=== PATIENT | male | born 1990 | race Caucasian/White ===

== ENCOUNTER 2017-06-07 07:20 | Inpatient (IN) | payer MEDICARE ==
[~2017-06-07] VITALS: Ht 190.5 cm; Wt 77.1 kg
[2017-06-07 07:45] VITALS: BP 143/91
[2017-06-07] MEDS ORDERED: Morphine Sulfate 4mg/ml Inj IVP ONE ×2 (08:45→11:00)
[2017-06-07 08:46] LABS: ANION GAP 11 mmol/L (5-15); CALCIUM 7.7 MG/DL (8.5-10.1); CARBON DIOXIDE 26 MMOL/L (21-32); CHLORIDE 100 MMOL/L (98-107); GLOMERULAR FILTRATION RATE > 60 mL/min (>60); SODIUM 137 MMOL/L (136-145)
[2017-06-07 08:49] LABS: BASOPHILS % (AUTO) 1.5 % (0.0-2.0); EOSINOPHILS % (AUTO) 3.2 % (0.0-3.0); MEAN CORPUSCULAR HEMOGLOBIN 30.5 PG (27.0-31.0); MEAN CORPUSCULAR HGB CONC 33.8 G/DL (32.0-36.0); MEAN CORPUSCULAR VOLUME 90 FL (80-99); MEAN PLATELET VOLUME 5.7 FL (6.5-10.1); MONOCYTES % (AUTO) 5.1 % (1.0-10.0); NEUTROPHILS % (AUTO) 66.3 % (45.0-75.0); PLATELET COUNT 337 K/UL (150-450); RED BLOOD COUNT 4.83 M/UL (4.70-6.10); RED CELL DISTRIBUTION WIDTH 11.9 % (11.6-14.8); WHITE BLOOD COUNT 5.6 K/UL (4.8-10.8)
[2017-06-07 08:50] LABS: ALANINE AMINOTRANSFERASE 24 U/L (12-78); ALBUMIN/GLOBULIN RATIO 0.7 (1.0-2.7); ASPARTATE AMINO TRANSFERASE 23 U/L (15-37); LIPASE 92 U/L (73-393); TOTAL PROTEIN 8.6 G/DL (6.4-8.2)
[2017-06-07 09:11] LABS: REFLEX LACTIC ACID YES OR NO YES
--- NOTE | 2017-06-07 09:18 | Emergency Room Report ---
History of Present Illness General Chief Complaint: Abdominal Pain Source: Patient Present Illness HPI 26-year-old male, history of Crohn's disease, also history of bowel perforation with resection of transverse colon 2012, ileostomy, last surgery performed 2013 p/w abdominal pain one day. Patient states pain started this morning, generalized, non radiating, sharp in nature, intermittent. No relieving or exacerbating factors. Also with nausea but no vomiting, also with very watery loose stool in the ileostomy Denies fever, chills. 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 here Allergies: Coded Allergies: No Known Allergies (Unverified , 06/07/17) Patient History Past Medical History: see triage record Past Surgical History: none Pertinent Family History: none Reviewed Nursing Documentation: PMH: Agreed, PSxH: Agreed Nursing Documentation-PMH Past Medical History: No History, Except For Hx Gastrointestinal Problems: Yes - chrons dz, illeostomy Review of Systems All Other Systems: negative except mentioned in HPI Physical Exam Vital Signs Date Time Temp Pulse Resp B/P (MAP) Pulse Ox O2 Delivery O2 Flow Rate FiO2 06/07/17 07:25 98.1 101 20 162/85 96 Room Air Sp02 EP Interpretation: reviewed, normal General Appearance: alert, GCS 15, non-toxic, mild distress Head: normocephalic, atraumatic Eyes: bilateral eye normal inspection, bilateral eye PERRL, bilateral eye EOMI ENT: normal ENT inspection, normal pharynx, normal voice, moist mucus membranes Neck: normal inspection, full range of motion, supple Respiratory: normal inspection, lungs clear, normal breath sounds, no respiratory distress, no retraction, no wheezing, speaking full sentences, chest symmetrical Cardiovascular #1: normal inspection, regular rate, rhythm, normal capillary refill Cardiovascular #2: 2+ radial (R), 2+ radial (L) Gastrointestinal: other - +ileostomy, well healed surgical scars on abdomen, generalized tendenress, no rebound, not peritoneal Musculoskeletal: normal inspection, back normal, normal range of motion, non- tender Neurologic: normal inspection, alert, oriented x3, responsive, motor strength/ tone normal, sensory intact, normal gait, speech normal Psychiatric: normal inspection, judgement/insight normal, memory normal Skin: normal inspection, normal color, no rash, warm/dry, well hydrated, normal turgor Medical Decision Making Diagnostic Impression: Primary Impression: Abdominal pain Additional Impressions: Dehydration Crohns disease ER Course 26-year-old male with abdominal pain Differential Diagnosis: Gastritis, gastroenteritis, cholecystitis, appendicitis, diverticulitis, SBO, mesenteric ischemia, cardiac, UTI/pyelo Crohn's disease flareup, intra-abdominal abscess Plan: Basic labs, ua, ekg pain control, IVF CT abdo pelvis ER course: Patient has remained stable during ED stay. Continues to have pain/feels weak. +nausea despite meds CT possible enteritis, no free air C.diff toxin sent, empirically treated with flagyl as pt states took abx for ear infection 2 wks ago will admit Disposition: Admitted patient to [facility] D/W hospitalist Dr Oneal who has accepted patient for admission Please note that this Emergency Department Report was dictated using [employer] hard[employer] machine setter technology software, occasionally this can lead to erroneous entry secondary to interpretation by the dictation equipment Rhythm Strip EP Interpretation: Yes Rate: 80 Rhythm: NSR, no PVCs, no ectopy Laboratory Tests Test 06/07/17 07:55 06/07/17 08:50 06/07/17 10:00 White Blood Count 5.6 K/UL (4.8-10.8) Red Blood Count 4.83 M/UL (4.70-6.10) Hemoglobin 14.7 G/DL (14.2-18.0) Hematocrit 43.6 % (42.0-52.0) Mean Corpuscular Volume 90 FL (80-99) Mean Corpuscular Hemoglobin 30.5 PG (27.0-31.0) Mean Corpuscular Hemoglobin Concent 33.8 G/DL (32.0-36.0) Red Cell Distribution Width 11.9 % (11.6-14.8) Platelet Count 337 K/UL (150-450) Mean Platelet Volume 5.7 FL (6.5-10.1) L Neutrophils (%) (Auto) 66.3 % (45.0-75.0) Lymphocytes (%) (Auto) 24.0 % (20.0-45.0) Monocytes (%) (Auto) 5.1 % (1.0-10.0) Eosinophils (%) (Auto) 3.2 % (0.0-3.0) H Basophils (%) (Auto) 1.5 % (0.0-2.0) Sodium Level 137 MMOL/L (136-145) Potassium Level 3.0 MMOL/L (3.5-5.1) L Chloride Level 100 MMOL/L (98-107) Carbon Dioxide Level 26 MMOL/L (21-32) Anion Gap 11 mmol/L (5-15) Blood Urea Nitrogen 10 mg/dL (7-18) Creatinine 1.0 MG/DL (0.55-1.30) Estimate Glomerular Filtration Rate > 60 mL/min (>60) Glucose Level 84 MG/DL (74-106) Lactic Acid Level 2.60 mmol/L (0.66-2.22) H 0.40 mmol/L (0.66-2.22) L Calcium Level 7.7 MG/DL (8.5-10.1) L Total Bilirubin 0.4 MG/DL (0.2-1.0) Aspartate Amino Transferase (AST) 23 U/L (15-37) Alanine Aminotransferase (ALT) 24 U/L (12-78) Alkaline Phosphatase 104 U/L (46-116) Total Protein 8.6 G/DL (6.4-8.2) H Albumin 3.6 G/DL (3.4-5.0) Globulin 5.0 g/dL Albumin/Globulin Ratio 0.7 (1.0-2.7) L Lipase 92 U/L (73-393) Urine Color Yellow Urine Appearance Clear Urine pH 5 (4.5-8.0) Urine Specific [place] 1.020 (1.005-1.035) Urine Protein 1+ (NEGATIVE) H Urine Glucose (UA) Negative (NEGATIVE) Urine Ketones Negative (NEGATIVE) Urine Occult Blood Negative (NEGATIVE) Urine Nitrite Negative (NEGATIVE) Urine Bilirubin Negative (NEGATIVE) Urine Urobilinogen Normal MG/DL (0.0-1.0) Urine Leukocyte Esterase Negative (NEGATIVE) Urine RBC 0-2 /HPF (0 - 0) H Urine WBC 0-2 /HPF (0 - 0) Urine Squamous Epithelial Cells Occasional /LPF Urine Bacteria Occasional /HPF (NONE) Urine Mucus Moderate /LPF (NONE/OCC) H CT/MRI/US Diagnostic Results CT/MRI/US Diagnostic Results : Imaging Test Ordered: CT abdo pelvis Impression Findings: Imaged lung bases are clear. Heart size within normal limits. No pericardial effusion. There punctate calcifications along the inferior margin of the liver (series 5 image #37). These findings are nonspecific and may be sequela of prior trauma, inflammation or granulomatous exposure. No focal liver lesion is appreciated on this single phase study. The hepatic veins and portal veins appear patent. Gallbladder unremarkable in appearance. No intrahepatic or extrahepatic biliary ductal dilatation. Spleen, adrenal glands and pancreas are unremarkable. There is a simple cyst in the midpole of the right kidney. Multiple punctate bilateral renal calcifications are noted which may represent small stones. No evidence of hydronephrosis bilaterally. Apparent bladder wall thickening likely related to underdistention. Prostate normal in size. A left lower quadrant ileostomy is noted. There is diastases of the rectus abdominis muscles possibly related to midline surgical scar. There is questionable ulceration/soft tissue defect in the umbilical region (series 3 image #47) correlation with physical exam is recommended. Evaluation of the bowel is limited without the use of oral contrast. There is prior subtotal colectomy. The residual rectosigmoid colon is decompressed. A small bowel anastomosis is noted in the left pelvis. There is no evidence of bowel obstruction. No free intraperitoneal air is seen. There is thickening of some small bowel loops in the left upper abdomen. Abdominal aorta is normal in caliber. Small mesenteric lymph nodes are noted, thought to be reactive in etiology. No acute osseous abnormality is identified. Impression: Evidence of prior subtotal colectomy and left lower quadrant ileostomy. No evidence of bowel obstruction. Thickening of some proximal small bowel loops in the left abdomen noted although evaluation is limited without oral contrast. These findings may be reflective of an enteritis, infectious or inflammatory in etiology. Clinical correlation is recommended. Multiple prominent mesenteric lymph nodes are seen, likely reactive in etiology. Diastases of the rectus muscles possibly related to prior abdominal surgery. There is apparent focal soft tissue defect or ulceration in the umbilical area. Correlation with physical exam recommended. Punctate bilateral renal stones. No evidence of hydronephrosis bilaterally. Apparent thickening of the bladder likely related to underdistention. Correlation with urinalysis recommended to exclude cystitis. Last Vital Signs Date Time Temp Pulse Resp B/P (MAP) Pulse Ox O2 Delivery O2 Flow Rate FiO2 06/07/17 07:45 89 16 143/91 96 Room Air 06/07/17 07:25 98.1 Disposition: ADMITTED INPATIENT Condition: Serious Referrals: NOT CHOSEN NURIA/,REFERRING (PCP) Laurie Jones M.D. Jun 07, 2017 09:18
[2017-06-07 09:25] LABS: APPEARANCE,URINE CLEAR; KETONES,URINE NEGATIVE (NEGATIVE); LEUKOCYTE ESTERASE ,URINE NEGATIVE (NEGATIVE); NITRITE,URINE NEGATIVE (NEGATIVE); PH,URINE 5 (4.5-8.0); PROTEIN,URINE 1+ (NEGATIVE); UROBILINOGEN,URINE NORMAL MG/DL (0.0-1.0)
[2017-06-07 09:38] LABS: BACTERIA,URINE OCCASIONAL /HPF; MUCUS,URINE MODERATE /LPF (NONE/OCC); RBC,URINE 0-2 /HPF (0 - 0); SQUAMOUS EPITHELIAL CELL,UR OCCASIONAL /LPF (NONE/OCC); WBC,URINE 0-2 /HPF (0 - 0)
--- NOTE | 2017-06-07 10:06 | Diagnostic Imaging Report ---
Indication: Pain Technique: CT of the abdomen and pelvis utilizing automated exposure control with intravenous contrast. Venous scanning performed. CT dose: Total DLP 675.57 mGycm; CTDI vol 12.57 mGy Comparison: None Findings: Imaged lung bases are clear. Heart size within normal limits. No pericardial effusion. There punctate calcifications along the inferior margin of the liver (series 5 image #37). These findings are nonspecific and may be sequela of prior trauma, inflammation or granulomatous exposure. No focal liver lesion is appreciated on this single phase study. The hepatic veins and portal veins appear patent. Gallbladder unremarkable in appearance. No intrahepatic or extrahepatic biliary ductal dilatation. Spleen, adrenal glands and pancreas are unremarkable. There is a simple cyst in the midpole of the right kidney. Multiple punctate bilateral renal calcifications are noted which may represent small stones. No evidence of hydronephrosis bilaterally. Apparent bladder wall thickening likely related to underdistention. Prostate normal in size. A left lower quadrant ileostomy is noted. There is diastases of the rectus abdominis muscles possibly related to midline surgical scar. There is questionable ulceration/soft tissue defect in the umbilical region (series 3 image #47) correlation with physical exam is recommended. Evaluation of the bowel is limited without the use of oral contrast. There is prior subtotal colectomy. The residual rectosigmoid colon is decompressed. A small bowel anastomosis is noted in the left pelvis. There is no evidence of bowel obstruction. No free intraperitoneal air is seen. There is thickening of some small bowel loops in the left upper abdomen. Abdominal aorta is normal in caliber. Small mesenteric lymph nodes are noted, thought to be reactive in etiology. No acute osseous abnormality is identified. Impression: Evidence of prior subtotal colectomy and left lower quadrant ileostomy. No evidence of bowel obstruction. Thickening of some proximal small bowel loops in the left abdomen noted although evaluation is limited without oral contrast. These findings may be reflective of an enteritis, infectious or inflammatory in etiology. Clinical correlation is recommended. Multiple prominent mesenteric lymph nodes are seen, likely reactive in etiology. Diastases of the rectus muscles possibly related to prior abdominal surgery. There is apparent focal soft tissue defect or ulceration in the umbilical area. Correlation with physical exam recommended. Punctate bilateral renal stones. No evidence of hydronephrosis bilaterally. Apparent thickening of the bladder likely related to underdistention. Correlation with urinalysis recommended to exclude cystitis. The CT scanner at [facility] is accredited by the [employer] and the scans are performed using protocols designed to limit radiation exposure to as low as reasonably achievable to attain images of sufficient resolution adequate for diagnostic evaluation.
[2017-06-07 11:22] VITALS: BP 138/89
[2017-06-07] MEDS ORDERED: MULTIVITAMINS1 EAC2 ORAL (13:00)
[2017-06-07 13:58] VITALS: BP 143/88
--- NOTE | 2017-06-07 14:31 | Nephrology Progress Note ---
Assessment/Plan Problem List: (1) Hypokalemia (2) Renal stones (3) Ileostomy present (4) Dehydration (5) Crohns disease (6) Abdominal pain Plan H&P Dictated - [id number] Subjective Constitutional: Denies: no symptoms, chills, diaphoresis, fever, malaise, weakness, other HEENT: Denies: no symptoms, eye pain, blurred vision, tearing, double vision, ear pain, ear discharge, nose pain, nose congestion, throat pain, throat swelling, mouth pain, mouth swelling, other Genitourinary: Denies: no symptoms, burning, discharge, frequency, flank pain, hematuria, incontinence, pain, urgency, other Neurologic/Psychiatric: Denies: no symptoms, anxiety, depressed, emotional problems, headache, numbness, paresthesia, pre-existing deficit, seizure, tingling, tremors, weakness, other Subjective In no apparent distress Objective Objective Last 24 Hour Vital Signs Date Time Temp Pulse Resp B/P (MAP) Pulse Ox O2 Delivery O2 Flow Rate FiO2 06/07/17 13:58 97.3 65 16 143/88 97 Room Air 06/07/17 12:05 98.1 06/07/17 11:22 87 14 138/89 97 Room Air 06/07/17 09:32 98.1 06/07/17 07:45 89 16 143/91 96 Room Air 06/07/17 07:25 98.1 101 20 162/85 96 Room Air Laboratory Tests 06/07/17 07:55: White Blood Count 5.6, Red Blood Count 4.83, Hemoglobin 14.7, Hematocrit 43.6, Mean Corpuscular Volume 90, Mean Corpuscular Hemoglobin 30.5, Mean Corpuscular Hemoglobin Concent 33.8, Red Cell Distribution Width 11.9, Platelet Count 337, Mean Platelet Volume 5.7L, Neutrophils (%) (Auto) 66.3, Lymphocytes (%) (Auto) 24.0, Monocytes (%) (Auto) 5.1, Eosinophils (%) (Auto) 3.2H, Basophils (%) (Auto ) 1.5, Sodium Level 137, Potassium Level 3.0L, Chloride Level 100, Carbon Dioxide Level 26, Anion Gap 11, Blood Urea Nitrogen 10, Creatinine 1.0, Estimat Glomerular Filtration Rate > 60, Glucose Level 84, Lactic Acid Level 2.60H, Calcium Level 7.7L, Total Bilirubin 0.4, Aspartate Amino Transf (AST/SGOT) 23, Alanine Aminotransferase (ALT/SGPT) 24, Alkaline Phosphatase 104, Total Protein 8.6H, Albumin 3.6, Globulin 5.0, Albumin/Globulin Ratio 0.7L, Lipase 92 06/07/17 08:50: Urine Color Yellow, Urine Appearance Clear, Urine pH 5, Urine Specific [place] 1.020, Urine Protein 1+H, Urine Glucose (UA) Negative, Urine Ketones Negative, Urine Occult Blood Negative, Urine Nitrite Negative, Urine Bilirubin Negative, Urine Urobilinogen Normal, Urine Leukocyte Esterase Negative, Urine RBC 0-2H, Urine WBC 0-2, Urine Squamous Epithelial Cells Occasional, Urine Bacteria Occasional, Urine Mucus ModerateH 06/07/17 10:00: Lactic Acid Level 0.40L Height (Feet): 6 Height (Inches): 3.00 Weight (Pounds): 170 General Appearance: no apparent distress, alert EENT: normal ENT inspection Neck: normal alignment, supple Cardiovascular: regular rhythm Respiratory/Chest: normal breath sounds, no respiratory distress Abdomen: soft, tender, other - ileostomy Extremities: non-tender Neurologic: alert, oriented x 3, responsive, normal mood/affect Lucy Patton N.P. Jun 07, 2017 14:31
[2017-06-07] MEDS: D5 1/2NS 1,000 ML IV SCH (16:03)
[2017-06-07] MEDS: Morphine Sulfate 2mg/ml Inj IVP PRN ×2 (16:07→20:12)
--- NOTE | 2017-06-07 16:08 | GI Initial Consult Note ---
History of Present Illness General Date patient seen: Jun 07, 2017 Time patient seen: 16:00 Reason for Hospitalization: Abdominal Pain Referring physician: BRIDGETTE TATUM Reason for Consultation: CROHNS Present Illness HPI 26-year-old male, history of Crohn's disease, also history of bowel perforation with resection of transverse colon 2012, ileostomy, last surgery performed 2013 p/w abdominal pain one day. Patient states pain started this morning, generalized, non radiating, sharp in nature, intermittent. No relieving or exacerbating factors. Also with nausea but no vomiting, also with very watery loose stool in the ileostomy Denies fever, chills. 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 HPI as noted above. Pt seen on floor, awake A&Ox4 NAD with no active s/sx of N/V. Noted patient has history of Crohns since childhood, resection as noted above. Does not take any medication for crohn's. Patient states healthy life style diet and exercise has prevented any previous flares. Ileostomy noted with watery brown stool, no noted melena or hematochezia. CT AP reviewed with enteritis, no SOB. Home Meds Reported Medications Multivitamins* (MULTIVITAMINS*) 1 Each Tablet, 1 TAB ORAL DAILY, TAB 0 Refills 06/07/17 Med list reviewed/reconciled: Yes Allergies: Coded Allergies: No Known Allergies (Unverified , 06/07/17) Patient History History Provided By: Patient PMH Narrative Past Medical History: see triage record Past Surgical History: none Pertinent Family History: none Reviewed Nursing Documentation: PMH: Agreed, PSxH: Agreed Nursing Documentation-PMH Past Medical History: No History, Except For Hx Gastrointestinal Problems: Yes - crohns dz, ileostomy Social History: Denies: smoking, alcohol use, drug use, other Review of Systems All Other Systems: negative except mentioned in HPI Physical Exam Vital Signs Date Time Temp Pulse Resp B/P (MAP) Pulse Ox O2 Delivery O2 Flow Rate FiO2 06/07/17 07:25 98.1 101 20 162/85 96 Room Air Sp02 EP Interpretation: reviewed, normal Labs Laboratory Tests Test 06/07/17 07:55 06/07/17 08:50 06/07/17 10:00 White Blood Count 5.6 K/UL (4.8-10.8) Red Blood Count 4.83 M/UL (4.70-6.10) Hemoglobin 14.7 G/DL (14.2-18.0) Hematocrit 43.6 % (42.0-52.0) Mean Corpuscular Volume 90 FL (80-99) Mean Corpuscular Hemoglobin 30.5 PG (27.0-31.0) Mean Corpuscular Hemoglobin Concent 33.8 G/DL (32.0-36.0) Red Cell Distribution Width 11.9 % (11.6-14.8) Platelet Count 337 K/UL (150-450) Mean Platelet Volume 5.7 FL (6.5-10.1) L Neutrophils (%) (Auto) 66.3 % (45.0-75.0) Lymphocytes (%) (Auto) 24.0 % (20.0-45.0) Monocytes (%) (Auto) 5.1 % (1.0-10.0) Eosinophils (%) (Auto) 3.2 % (0.0-3.0) H Basophils (%) (Auto) 1.5 % (0.0-2.0) Sodium Level 137 MMOL/L (136-145) Potassium Level 3.0 MMOL/L (3.5-5.1) L Chloride Level 100 MMOL/L (98-107) Carbon Dioxide Level 26 MMOL/L (21-32) Anion Gap 11 mmol/L (5-15) Blood Urea Nitrogen 10 mg/dL (7-18) Creatinine 1.0 MG/DL (0.55-1.30) Estimat Glomerular Filtration Rate > 60 mL/min (>60) Glucose Level 84 MG/DL (74-106) Lactic Acid Level 2.60 mmol/L (0.66-2.22) H 0.40 mmol/L (0.66-2.22) L Calcium Level 7.7 MG/DL (8.5-10.1) L Total Bilirubin 0.4 MG/DL (0.2-1.0) Aspartate Amino Transf (AST/SGOT) 23 U/L (15-37) Alanine Aminotransferase (ALT/SGPT) 24 U/L (12-78) Alkaline Phosphatase 104 U/L (46-116) Total Protein 8.6 G/DL (6.4-8.2) H Albumin 3.6 G/DL (3.4-5.0) Globulin 5.0 g/dL Albumin/Globulin Ratio 0.7 (1.0-2.7) L Lipase 92 U/L (73-393) Urine Color Yellow Urine Appearance Clear Urine pH 5 (4.5-8.0) Urine Specific [place] 1.020 (1.005-1.035) Urine Protein 1+ (NEGATIVE) H Urine Glucose (UA) Negative (NEGATIVE) Urine Ketones Negative (NEGATIVE) Urine Occult Blood Negative (NEGATIVE) Urine Nitrite Negative (NEGATIVE) Urine Bilirubin Negative (NEGATIVE) Urine Urobilinogen Normal MG/DL (0.0-1.0) Urine Leukocyte Esterase Negative (NEGATIVE) Urine RBC 0-2 /HPF (0 - 0) H Urine WBC 0-2 /HPF (0 - 0) Urine Squamous Epithelial Cells Occasional /LPF Urine Bacteria Occasional /HPF (NONE) Urine Mucus Moderate /LPF (NONE/OCC) H General Appearance: well appearing, no apparent distress, alert Head: normocephalic EENT: PERRL/EOMI, normal ENT inspection Neck: supple Respiratory: normal breath sounds, no respiratory distress Cardiovascular: normal rate Gastrointestinal: normal inspection, non tender, soft, normal bowel sounds, non -distended, other - ileostomy Rectal: deferred Genitourinary: deferred Musculoskeletal: normal inspection, back normal Neurologic: normal inspection, alert, oriented x3, responsive Psychiatric: normal inspection, judgement/insight normal, memory normal Skin: normal inspection, normal color, no rash, warm/dry, palpation normal, well hydrated Lymphatic: normal inspection, no adenopathy Current Medications Current Medications Medications (Trade) Dose Ordered Sig/Marla Route PRN Reason Start Time Stop Time Status Last Admin Dose Admin Acetaminophen/ Hydrocodone Bitart ([place] 5/325) 1 tab Q4H PRN ORAL Moderate Pain (Pain Scale 4-6) 06/07/17 14:15 06/14/17 14:14 Dextrose (Dextrose 50%) STAT PRN IV Hypoglycemia 06/07/17 14:15 07/07/17 14:14 Dextrose/Sodium Chloride 1,000 ml @ 75 mls/hr [id number] IV 06/07/17 15:11 07/07/17 15:10 Diphenhydramine HCl (Benadryl) 25 mg Q6H PRN ORAL Itching/Pruritis 06/07/17 14:15 07/07/17 14:14 Heparin Sodium (Porcine) (Heparin 5000 units/ml) 5,000 units EVERY 12 HOURS SUBQ 06/07/17 21:00 07/07/17 20:59 Morphine Sulfate (Morphine Sulfate) 2 mg Q4H PRN IVP Severe Pain (Pain Scale 7-10) 06/07/17 14:15 06/14/17 14:14 Ondansetron HCl (Zofran) 4 mg Q6H PRN IVP Nausea & Vomiting 06/07/17 14:15 07/07/17 14:14 Pantoprazole (Protonix) 40 mg DAILY ORAL 06/08/17 09:00 07/08/17 08:59 GI: Plan Problems: (1) Ileostomy present (2) Abdominal pain (3) Crohns disease (4) Dehydration Plan patient refusing medication for Crohn's >> pentasa supportive care at this time adv to BRAT diet lactobacillus metamucil pain mgmt fu labs, ESR, CRP r/o Crohn's flare Discussed with Dr. Chisholm. Thank you for this patient referral, we will follow. Pia Bell N.P. Jun 07, 2017 16:08
[2017-06-07] MEDS: Lactobacillus-GG tablet ORAL SCH (18:33)
[2017-06-07] MEDS: Metamucil Pkt ORAL SCH (18:37)
[2017-06-07 20:00] VITALS: BP 152/95
[2017-06-07] MEDS: Heparin 5000 units/ml inj SUBQ SCH (20:12)
--- NOTE | 2017-06-07 23:15 | HX and Phyl Repo 2 Sig ---
DATE OF ADMISSION: 06/07/2017 INTERNAL MEDICINE HISTORY AND PHYSICAL HISTORY OF PRESENT ILLNESS: The patient is a 26-year-old male with a past medical history significant for Crohn's disease, diagnosed history of bowel perforation with resection in 2012 with ileostomy who presented to the emergency room with right quadrant abdominal pain, lower. According to him, he has been having a hernia at that site, but this morning he has abdominal pain at the site, which worsened prompting his visit to the emergency room. He also stated that he noticed some bulge on his left side close to the ileostomy, which could be as a result of hernia and wants his surgeon to look at it. He denies any chest pain, has some nausea with the pain, but denies any vomiting. Denies fever. No chills. No lightheadedness. Pain is sharp, nonradiating, and intermittent. No alleviating or exacerbating factors. He also noted some watery stools in the ileostomy. 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 He is lying in bed at this time in no apparent distress. PAST MEDICAL HISTORY: Significant for Crohn's disease. PAST SURGICAL HISTORY: Transverse resection of the colon in 2012. HOME MEDICATIONS: Multivitamin 1 tablet daily. ALLERGIES: He has no known allergies. SOCIAL HISTORY: He denies illicit drug use. Uses alcohol occasionally. Does not smoke cigarettes, but smokes marijuana occasionally. REVIEW OF SYSTEMS: A full 12-point review of systems was reviewed with the patient and positives as stated in HPI. PHYSICAL EXAMINATION: GENERAL: This is a 26-year-old male, in no apparent distress. VITAL SIGNS: Blood pressure 143/88, heart rate is 65, respiratory rate is 14, temperature is 97.3, and O2 saturation is 97% on room air. HEENT: Head is normocephalic and atraumatic with moist mucous membranes. Pupils are equal, round, and reactive to light and accommodation. NECK: Supple. No JVD noted. LUNGS: Clear to auscultation bilaterally. No crackles. No wheezing. ABDOMEN: Mild tenderness is noted on the right quadrant, the area the patient stated that he had hernia. Also noted on the abdomen is an ileostomy bag. EXTREMITIES: No edema. No cyanosis. No clubbing. NEUROLOGIC: He is awake, alert, and oriented x3 with no focal deficits. LABORATORY DATA: CBC; white count 5.6, hemoglobin 14.7, hematocrit 43.6, and platelet count of 337. BMP; sodium 137, potassium 3.0 chloride 100, bicarbonate is 26, BUN 10, creatinine 1.0 and blood glucose is 84. Lactic acid at this time is 0.40. RADIOLOGIC FINDINGS: CT of the abdomen and pelvis, impression, evidence of prior subtotal colectomy and left lower quadrant ileostomy. No evidence of bowel obstruction. Thickening of some proximal small bowel loops in the left abdomen noted. O2 evaluation is limited without oral contrast. These findings may be reflective of an enteritis, infectious or inflammatory in etiology. Clinical correlation is recommended. Multiple prominent mesenteric lymph nodes are seen likely reactive in etiology. Diastasis of the rectus muscles possibly related to prior abdominal surgery. There is apparent focal soft tissue defect or ulceration in the umbilical area. Correlation with physical examination recommended. Punctate bilateral renal stones. No evidence of hydronephrosis bilaterally. Apparent thickening of the bladder likely related to under distention. Correlation with urinalysis is recommended to exclude cystitis. ASSESSMENT: 1. Abdominal pain. 2. Crohn disease. 3. Hypokalemia. 4. Ileostomy. 5. Nausea. 6. Renal stones. PLAN: We will continue current treatment at this time. We will obtain a surgical consult on this patient to evaluate hernia. We will monitor electrolytes and correct p.r.n. We will replace potassium. We will also obtain an ID consult. We will start the patient on IV fluid. Pain management as needed with morphine and [place]. We will monitor the patient's overall response to treatment. Vince St M.D. Lucy Patton DR: RICHAR JOB#: [id number] CC:
[2017-06-08] VITALS (7 sets, daily range): BP systolic 126–143; BP diastolic 64–96
[2017-06-08] MEDS: Morphine Sulfate 2mg/ml Inj IVP PRN ×6 (00:19→22:35)
[2017-06-08] MEDS: D5 1/2NS 1,000 ML IV SCH ×2 (04:13→17:58)
--- NOTE | 2017-06-08 08:12 | General Progress Note ---
Assessment/Plan Problem List: (1) Crohns disease ICD Codes: K50.90 - Crohn's disease, unspecified, without complications SNOMED: 12740279 (2) Dehydration ICD Codes: E86.0 - Dehydration SNOMED: 91026379 (3) Hypokalemia ICD Codes: E87.6 - Hypokalemia SNOMED: 10767751 (4) Renal stones ICD Codes: N20.0 - Calculus of kidney SNOMED: 60383288 (5) Ileostomy present ICD Codes: Z93.2 - Ileostomy status SNOMED: 747480214 Assessment/Plan flagyl patient refusing steroids or any other medications for CD tolerating diet neg stool C.diff fu labs pain control Subjective ROS Limited/Unobtainable: Yes Allergies: Coded Allergies: No Known Allergies (Unverified , 06/07/17) Subjective abd pain Objective Last 24 Hour Vital Signs Date Time Temp Pulse Resp B/P (MAP) Pulse Ox O2 Delivery O2 Flow Rate FiO2 06/08/17 07:59 97.3 60 20 128/70 98 Room Air 06/08/17 04:00 96.4 18 131/73 98 06/08/17 04:00 56 Room Air 06/08/17 00:00 Room Air 06/08/17 00:00 97.7 60 19 141/96 99 Room Air 06/07/17 20:00 Room Air 06/07/17 20:00 98.2 60 18 152/95 98 06/07/17 13:58 97.3 65 16 143/88 97 Room Air 06/07/17 13:30 65 13 124/69 96 Room Air 06/07/17 12:05 98.1 06/07/17 11:22 87 14 138/89 97 Room Air 06/07/17 09:32 98.1 Intake and Output 06/07/17 06/08/17 19:00 07:00 Intake Total 3325 ml 1325 ml Output Total 1600 ml Balance 1725 ml 1325 ml Intake Oral 1000 ml 500 ml IV Total 2325 ml 825 ml Output Urine Total 400 ml Stool Total 1200 ml # Voids 3 # Bowel Movements 2 Laboratory Tests 06/07/17 08:50: Urine Color Yellow, Urine Appearance Clear, Urine pH 5, Urine Specific Brant 1.020, Urine Protein 1+H, Urine Glucose (UA) Negative, Urine Ketones Negative, Urine Occult Blood Negative, Urine Nitrite Negative, Urine Bilirubin Negative, Urine Urobilinogen Normal, Urine Leukocyte Esterase Negative, Urine RBC 0-2H, Urine WBC 0-2, Urine Squamous Epithelial Cells Occasional, Urine Bacteria Occasional, Urine Mucus ModerateH 06/07/17 10:00: Lactic Acid Level 0.40L 06/07/17 16:48: Erythrocyte Sedimentation Rate 21H, C-Reactive Protein, Quantitative < 0.4 Impression: Evidence of prior subtotal colectomy and left lower quadrant ileostomy. No evidence of bowel obstruction. Thickening of some proximal small bowel loops in the left abdomen noted although evaluation is limited without oral contrast. These findings may be reflective of an enteritis, infectious or inflammatory in etiology. Clinical correlation is recommended. Multiple prominent mesenteric lymph nodes are seen, likely reactive in etiology. Diastases of the rectus muscles possibly related to prior abdominal surgery. There is apparent focal soft tissue defect or ulceration in the umbilical area. Correlation with physical exam recommended. Punctate bilateral renal stones. No evidence of hydronephrosis bilaterally. Apparent thickening of the bladder likely related to underdistention. Correlation with urinalysis recommended to exclude cystitis. Height (Feet): 6 Height (Inches): 3.00 Weight (Pounds): 170 General Appearance: alert EENT: normal ENT inspection Neck: supple Cardiovascular: normal rate Respiratory/Chest: lungs clear Abdomen: soft, decreased bowel sounds, other - ileostomy in place Extremities: non-tender DALIA WILCOX Jun 08, 2017 08:12
[2017-06-08] MEDS: Heparin 5000 units/ml inj SUBQ SCH ×2 (09:00→20:07)
[2017-06-08] MEDS: Lactobacillus-GG tablet ORAL SCH ×3 (09:03→17:41)
[2017-06-08] MEDS: Metamucil Pkt ORAL SCH ×3 (09:03→17:40)
[2017-06-08 09:43] LABS: BASOPHILS % (AUTO) 1.2 % (0.0-2.0); EOSINOPHILS % (AUTO) 4.9 % (0.0-3.0); LYMPHOCYTES % (AUTO) 30.9 % (20.0-45.0); MEAN CORPUSCULAR HEMOGLOBIN 30.9 PG (27.0-31.0); MEAN CORPUSCULAR VOLUME 91 FL (80-99); MEAN PLATELET VOLUME 5.9 FL (6.5-10.1); MONOCYTES % (AUTO) 9.4 % (1.0-10.0); NEUTROPHILS % (AUTO) 53.6 % (45.0-75.0); PLATELET COUNT 230 K/UL (150-450); RED BLOOD COUNT 4.18 M/UL (4.70-6.10); RED CELL DISTRIBUTION WIDTH 11.9 % (11.6-14.8); WHITE BLOOD COUNT 4.2 K/UL (4.8-10.8)
[2017-06-08 09:55] LABS: ANION GAP 2 mmol/L (5-15); CALCIUM 7.4 MG/DL (8.5-10.1); CARBON DIOXIDE 32 MMOL/L (21-32); CHLORIDE 104 MMOL/L (98-107); CREATININE 0.8 MG/DL (0.55-1.30); GLOMERULAR FILTRATION RATE > 60 mL/min (>60); POTASSIUM 3.6 MMOL/L (3.5-5.1); SODIUM 138 MMOL/L (136-145); THYROID STIMULATING HORMONE 2.701 uiU/mL (0.358-3.740)
--- NOTE | 2017-06-08 23:02 | Nephrology Progress Note ---
Assessment/Plan Problem List: (1) Dehydration (2) Crohns disease (3) Hypokalemia (4) Abdominal pain (5) Renal stones (6) Ileostomy present (7) Iron deficiency anemia Plan GI and surg consulted. empiric abx. ID consulted. monitor labs. Subjective Subjective doing ok. abd pain better. tolerating po. Objective Objective Last 24 Hour Vital Signs Date Time Temp Pulse Resp B/P (MAP) Pulse Ox O2 Delivery O2 Flow Rate FiO2 06/08/17 20:18 98.2 51 21 141/87 95 Room Air 06/08/17 20:00 97.7 64 18 143/79 97 06/08/17 18:13 97.3 06/08/17 15:58 97.3 50 20 126/70 98 06/08/17 11:37 98.0 58 20 137/64 99 Room Air 06/08/17 07:59 97.3 60 20 128/70 98 Room Air 06/08/17 04:00 96.4 18 131/73 98 06/08/17 04:00 56 Room Air 06/08/17 00:00 Room Air 06/08/17 00:00 97.7 60 19 141/96 99 Room Air Intake and Output 06/07/17 06/08/17 19:00 07:00 Intake Total 3325 ml 1400 ml Output Total 1600 ml Balance 1725 ml 1400 ml Intake Oral 1000 ml 500 ml IV Total 2325 ml 900 ml Output Urine Total 400 ml Stool Total 1200 ml # Voids 3 # Bowel Movements 2 Laboratory Tests 06/08/17 09:12: White Blood Count 4.2L, Red Blood Count 4.18L, Hemoglobin 12.9L, Hematocrit 38.0L, Mean Corpuscular Volume 91, Mean Corpuscular Hemoglobin 30.9, Mean Corpuscular Hemoglobin Concent 34.0, Red Cell Distribution Width 11.9, Platelet Count 230, Mean Platelet Volume 5.9L, Neutrophils (%) (Auto) 53.6, Lymphocytes ( %) (Auto) 30.9, Monocytes (%) (Auto) 9.4, Eosinophils (%) (Auto) 4.9H, Basophils (%) (Auto) 1.2, Sodium Level 138, Potassium Level 3.6, Chloride Level 104, Carbon Dioxide Level 32, Anion Gap 2L, Blood Urea Nitrogen 7, Creatinine 0.8, Estimat Glomerular Filtration Rate > 60, Glucose Level 94, Calcium Level 7.4L, Thyroid Stimulating Hormone (TSH) 2.701 Height (Feet): 6 Height (Inches): 3.00 Weight (Pounds): 170 General Appearance: no apparent distress Cardiovascular: normal rate, regular rhythm Respiratory/Chest: lungs clear Abdomen: non tender, soft Extremities: non-pitting Neurologic: alert, oriented x 3 BR[address]TE [address]ZA Jun 08, 2017 23:02
[2017-06-08] MEDS: LORazepam 1mg tab ORAL PRN (23:07)
[2017-06-09] VITALS: BP 150/72
[2017-06-09] MEDS: Morphine Sulfate 2mg/ml Inj IVP PRN ×4 (03:52→23:57)
[2017-06-09] MEDS: D5 1/2NS 1,000 ML IV SCH ×2 (03:53→18:40)
[2017-06-09 03:56] VITALS: BP 139/89
[2017-06-09 07:14] LABS: BASOPHILS % (AUTO) 1.3 % (0.0-2.0); EOSINOPHILS % (AUTO) 6.5 % (0.0-3.0); LYMPHOCYTES % (AUTO) 28.9 % (20.0-45.0); MEAN CORPUSCULAR HEMOGLOBIN 30.9 PG (27.0-31.0); MEAN CORPUSCULAR HGB CONC 34.7 G/DL (32.0-36.0); MEAN CORPUSCULAR VOLUME 89 FL (80-99); MEAN PLATELET VOLUME 5.8 FL (6.5-10.1); MONOCYTES % (AUTO) 7.9 % (1.0-10.0); NEUTROPHILS % (AUTO) 55.4 % (45.0-75.0); PLATELET COUNT 245 K/UL (150-450); RED CELL DISTRIBUTION WIDTH 11.9 % (11.6-14.8); WHITE BLOOD COUNT 4.1 K/UL (4.8-10.8)
[2017-06-09 07:37] LABS: ALANINE AMINOTRANSFERASE 17 U/L (12-78); ALBUMIN/GLOBULIN RATIO 0.7 (1.0-2.7); ANION GAP 3 mmol/L (5-15); ASPARTATE AMINO TRANSFERASE 16 U/L (15-37); CARBON DIOXIDE 32 MMOL/L (21-32); CHLORIDE 104 MMOL/L (98-107); CREATININE 0.8 MG/DL (0.55-1.30); GLOMERULAR FILTRATION RATE > 60 mL/min (>60); POTASSIUM 3.6 MMOL/L (3.5-5.1); SODIUM 139 MMOL/L (136-145); TOTAL PROTEIN 7.1 G/DL (6.4-8.2)
[2017-06-09 08:00] VITALS: BP 148/80
[2017-06-09] MEDS: Heparin 5000 units/ml inj SUBQ SCH ×2 (09:00→21:00)
[2017-06-09] MEDS: Metamucil Pkt ORAL SCH ×3 (09:12→18:00)
[2017-06-09] MEDS: LORazepam 1mg tab ORAL PRN ×2 (09:12→18:15)
[2017-06-09] MEDS: Lactobacillus-GG tablet ORAL SCH ×3 (09:12→18:15)
[2017-06-09] MEDS: Norco 5mg/325mg tab ORAL PRN (09:13)
[2017-06-09 09:38] LABS: FOLIC ACID 11.7 NG/ML (8.6-58.9); IRON 31 ug/dL (50-175); TOTAL IRON BINDING CAPACITY 379 ug/dL (250-450)
--- NOTE | 2017-06-09 09:41 | General Progress Note ---
Assessment/Plan Problem List: (1) Crohns disease ICD Codes: K50.90 - Crohn's disease, unspecified, without complications SNOMED: 06396635 (2) Dehydration ICD Codes: E86.0 - Dehydration SNOMED: 89509585 (3) Hypokalemia ICD Codes: E87.6 - Hypokalemia SNOMED: 61104523 (4) Renal stones ICD Codes: N20.0 - Calculus of kidney SNOMED: 42567598 (5) Ileostomy present ICD Codes: Z93.2 - Ileostomy status SNOMED: 673723781 Assessment/Plan flagyl patient refusing steroids or any other medications for CD tolerating diet neg stool C.diff fu labs pain control Subjective ROS Limited/Unobtainable: Yes Allergies: Coded Allergies: No Known Allergies (Unverified , 06/07/17) Subjective abd pain Objective Last 24 Hour Vital Signs Date Time Temp Pulse Resp B/P (MAP) Pulse Ox O2 Delivery O2 Flow Rate FiO2 06/09/17 08:00 96.4 57 18 148/80 99 Room Air 06/09/17 04:22 97.2 06/09/17 03:56 97.2 51 17 139/89 99 Room Air 06/09/17 00:00 98.1 55 18 150/72 98 06/08/17 20:18 98.2 51 21 141/87 95 Room Air 06/08/17 20:00 97.7 64 18 143/79 97 06/08/17 15:58 97.3 50 20 126/70 98 06/08/17 11:37 98.0 58 20 137/64 99 Room Air Intake and Output 06/08/17 06/09/17 19:00 07:00 Intake Total 1860 ml 1185 ml Output Total 1500 ml 1450 ml Balance 360 ml -265 ml Intake Oral 960 ml 360 ml IV Total 900 ml 825 ml Output Urine Total 1500 ml 1450 ml Laboratory Tests 06/09/17 06:10: White Blood Count 4.1L, Red Blood Count 4.50L, Hemoglobin 13.9L, Hematocrit 40.1L, Mean Corpuscular Volume 89, Mean Corpuscular Hemoglobin 30.9, Mean Corpuscular Hemoglobin Concent 34.7, Red Cell Distribution Width 11.9, Platelet Count 245, Mean Platelet Volume 5.8L, Neutrophils (%) (Auto) 55.4, Lymphocytes ( %) (Auto) 28.9, Monocytes (%) (Auto) 7.9, Eosinophils (%) (Auto) 6.5H, Basophils (%) (Auto) 1.3, Sodium Level 139, Potassium Level 3.6, Chloride Level 104, Carbon Dioxide Level 32, Anion Gap 3L, Blood Urea Nitrogen 9, Creatinine 0.8, Estimat Glomerular Filtration Rate > 60, Glucose Level 97, Calcium Level 8.0L, Iron Level [Pending], Unsaturated Iron Binding [Pending], Total Bilirubin 0.3, Aspartate Amino Transf (AST/SGOT) 16, Alanine Aminotransferase (ALT/SGPT) 17, Alkaline Phosphatase 79, Total Protein 7.1, Albumin 2.8L, Globulin 4.3, Albumin/Globulin Ratio 0.7L, Vitamin B12 Level [Pending], Folate [Pending] Height (Feet): 6 Height (Inches): 3.00 Weight (Pounds): 170 General Appearance: alert EENT: normal ENT inspection Neck: supple Cardiovascular: normal rate Respiratory/Chest: decreased breath sounds Abdomen: normal bowel sounds, non tender, soft Extremities: non-tender DALIA WILCOX Jun 09, 2017 09:41
[2017-06-09 12:00] VITALS: BP 131/70
[2017-06-09 16:00] VITALS: BP 128/69
[2017-06-09 20:00] VITALS: BP 136/82
--- NOTE | 2017-06-09 23:36 | Nephrology Progress Note ---
Assessment/Plan Problem List: (1) Sepsis due to Enterococcus (2) Iron deficiency anemia (3) Ileostomy present (4) Renal stones (5) Abdominal pain (6) Hypokalemia (7) Crohns disease (8) Dehydration Plan ID, GI, and Surg following. empiric abx. f/u bcx. monitor labs. Subjective Subjective BCx positive. No fever. Objective Objective Last 24 Hour Vital Signs Date Time Temp Pulse Resp B/P (MAP) Pulse Ox O2 Delivery O2 Flow Rate FiO2 06/09/17 20:04 98.1 06/09/17 20:00 98.1 52 18 136/82 96 06/09/17 16:00 97.4 57 18 128/69 98 06/09/17 12:00 97.0 55 19 131/70 Room Air 06/09/17 10:12 96.4 06/09/17 08:00 96.4 57 18 148/80 99 Room Air 06/09/17 03:56 97.2 51 17 139/89 99 Room Air 06/09/17 00:00 98.1 55 18 150/72 98 Intake and Output 06/08/17 06/09/17 19:00 07:00 Intake Total 1860 ml 1185 ml Output Total 1500 ml 1450 ml Balance 360 ml -265 ml Intake Oral 960 ml 360 ml IV Total 900 ml 825 ml Output Urine Total 1500 ml 1450 ml Laboratory Tests 06/09/17 06:10: White Blood Count 4.1L, Red Blood Count 4.50L, Hemoglobin 13.9L, Hematocrit 40.1L, Mean Corpuscular Volume 89, Mean Corpuscular Hemoglobin 30.9, Mean Corpuscular Hemoglobin Concent 34.7, Red Cell Distribution Width 11.9, Platelet Count 245, Mean Platelet Volume 5.8L, Neutrophils (%) (Auto) 55.4, Lymphocytes ( %) (Auto) 28.9, Monocytes (%) (Auto) 7.9, Eosinophils (%) (Auto) 6.5H, Basophils (%) (Auto) 1.3, Sodium Level 139, Potassium Level 3.6, Chloride Level 104, Carbon Dioxide Level 32, Anion Gap 3L, Blood Urea Nitrogen 9, Creatinine 0.8, Estimat Glomerular Filtration Rate > 60, Glucose Level 97, Calcium Level 8.0L, Iron Level 31L, Total Iron Binding Capacity 379, Percent Iron Saturation 8L, Unsaturated Iron Binding 348H, Total Bilirubin 0.3, Aspartate Amino Transf ( AST/SGOT) 16, Alanine Aminotransferase (ALT/SGPT) 17, Alkaline Phosphatase 79, Total Protein 7.1, Albumin 2.8L, Globulin 4.3, Albumin/Globulin Ratio 0.7L, Vitamin B12 Level 208, Folate 11.7 Height (Feet): 6 Height (Inches): 3.00 Weight (Pounds): 170 General Appearance: no apparent distress Cardiovascular: normal rate, regular rhythm Respiratory/Chest: lungs clear Abdomen: non tender, soft Extremities: non-pitting Neurologic: alert, oriented x 3 [address] Jun 09, 2017 23:36
[2017-06-10] VITALS: BP 112/55
[2017-06-10 04:00] VITALS: BP 122/64
[2017-06-10] MEDS: Morphine Sulfate 2mg/ml Inj IVP PRN ×5 (04:37→22:02)
[2017-06-10] MEDS: LORazepam 1mg tab ORAL PRN ×3 (07:13→23:10)
[2017-06-10 08:12] VITALS: BP 111/57
[2017-06-10] MEDS: Heparin 5000 units/ml inj SUBQ SCH ×2 (09:00→20:29)
[2017-06-10] MEDS: Metamucil Pkt ORAL SCH ×3 (09:08→18:04)
[2017-06-10] MEDS: Lactobacillus-GG tablet ORAL SCH ×3 (09:08→18:04)
[2017-06-10] MEDS: D5 1/2NS 1,000 ML IV SCH ×2 (09:09→22:43)
[2017-06-10] MEDS ORDERED: D5 1/2NS 1000ml IV ONE (10:34)
--- NOTE | 2017-06-10 10:42 | General Progress Note ---
Assessment/Plan Problem List: (1) Crohns disease ICD Codes: K50.90 - Crohn's disease, unspecified, without complications SNOMED: 37027012 (2) Dehydration ICD Codes: E86.0 - Dehydration SNOMED: 80306901 (3) Hypokalemia ICD Codes: E87.6 - Hypokalemia SNOMED: 08091856 (4) Renal stones ICD Codes: N20.0 - Calculus of kidney SNOMED: 61523223 (5) Ileostomy present ICD Codes: Z93.2 - Ileostomy status SNOMED: 189233246 (6) Iron deficiency anemia ICD Codes: D50.9 - Iron deficiency anemia, unspecified SNOMED: 87901544 Assessment/Plan flagyl patient refusing steroids or any other medications for CD tolerating diet neg stool C.diff fu labs pain control iv iron Subjective ROS Limited/Unobtainable: Yes Allergies: Coded Allergies: No Known Allergies (Unverified , 06/07/17) Subjective abd pain Objective Last 24 Hour Vital Signs Date Time Temp Pulse Resp B/P (MAP) Pulse Ox O2 Delivery O2 Flow Rate FiO2 06/10/17 08:12 98.4 57 20 111/57 97 06/10/17 05:07 98.1 06/10/17 04:00 98.6 71 21 122/64 98 06/10/17 00:00 Room Air 06/10/17 00:00 98.6 52 21 112/55 96 06/09/17 20:00 Room Air 06/09/17 20:00 98.1 52 18 136/82 96 06/09/17 16:00 97.4 57 18 128/69 98 06/09/17 12:00 97.0 55 19 131/70 Room Air Intake and Output 06/09/17 06/10/17 19:00 07:00 Intake Total 880 ml 825 ml Output Total 800 ml 1250 ml Balance 80 ml -425 ml Intake Oral 880 ml IV Total 825 ml Output Urine Total 800 ml 850 ml Stool Total 400 ml # Voids 3 Height (Feet): 6 Height (Inches): 3.00 Weight (Pounds): 170 General Appearance: alert EENT: normal ENT inspection Neck: supple Cardiovascular: normal rate Respiratory/Chest: decreased breath sounds Abdomen: non tender, soft, other - ileostomy Extremities: non-tender VOSOGHI,DALIA Jun 10, 2017 10:42
[2017-06-10 12:09] VITALS: BP 110/60
[2017-06-10] MEDS: Norco 5mg/325mg tab ORAL PRN (12:28)
--- NOTE | 2017-06-10 13:18 | Infectious Diseases Prog Note ---
Assessment/Plan Problems: (1) Sepsis due to Enterococcus Assessment & Plan: source is GI tract , ? enteritis VS incarceration , will start patient on zosyn and order 2D echo to rule out endocarditis, will repeat blood culture to confirm clearance (2) Crohns disease Assessment & Plan: not on meds, GI is following (3) Abdominal pain Assessment & Plan: with hernia, and non reducible bowel , rule out incarceration os his hernia , GI is following , will consult general surgery (4) Ileostomy present Assessment & Plan: continue local care Subjective Allergies: Coded Allergies: No Known Allergies (Unverified , 06/07/17) Objective Vital Signs Last 24 Hour Vital Signs Date Time Temp Pulse Resp B/P (MAP) Pulse Ox O2 Delivery O2 Flow Rate FiO2 06/10/17 12:09 98.2 60 20 110/60 97 06/10/17 08:12 98.4 57 20 111/57 97 06/10/17 05:07 98.1 06/10/17 04:00 98.6 71 21 122/64 98 06/10/17 00:00 Room Air 06/10/17 00:00 98.6 52 21 112/55 96 06/09/17 20:00 Room Air 06/09/17 20:00 98.1 52 18 136/82 96 06/09/17 16:00 97.4 57 18 128/69 98 Height (Feet): 6 Height (Inches): 3.00 Weight (Pounds): 170 Current Medications Medications (Trade) Dose Ordered Sig/Marla Route PRN Reason Start Time Stop Time Status Last Admin Dose Admin Acetaminophen/ Hydrocodone Bitart ([place] 5/325) 1 tab Q4H PRN ORAL Moderate Pain (Pain Scale 4-6) 06/07/17 14:15 06/14/17 14:14 06/10/17 12:28 Ampicillin 2 gm/ Sodium Chloride 110 ml @ 220 mls/hr EVERY 4 HOURS IVPB 06/10/17 17:00 07/17/17 16:59 UNV Dextrose (Dextrose 50%) STAT PRN IV Hypoglycemia 06/07/17 14:15 07/07/17 14:14 Dextrose/Sodium Chloride 1,000 ml @ 75 mls/hr [id number] IV 06/07/17 15:11 07/07/17 15:10 06/10/17 09:09 Diphenhydramine HCl (Benadryl) 25 mg Q6H PRN ORAL Itching/Pruritis 06/07/17 14:15 07/07/17 14:14 Heparin Sodium (Porcine) (Heparin 5000 units/ml) 5,000 units EVERY 12 HOURS SUBQ 06/07/17 21:00 07/07/17 20:59 Iron Sucrose 100 mg/Sodium Chloride 60 ml @ 240 mls/hr BEDTIME IV 06/10/17 21:00 06/14/17 21:14 Lactobacillus Acidophilus (Culturelle) 1 tab THREE TIMES A DAY ORAL 06/07/17 18:00 07/07/17 17:59 06/10/17 09:08 Lorazepam (Ativan) 1 mg Q8HR PRN ORAL For Anxiety 06/08/17 23:00 06/15/17 22:59 06/10/17 07:13 Morphine Sulfate (Morphine Sulfate) 2 mg Q4H PRN IVP Severe Pain (Pain Scale 7-10) 06/07/17 14:15 06/14/17 14:14 06/10/17 09:08 Ondansetron HCl (Zofran) 4 mg Q6H PRN IVP Nausea & Vomiting 06/07/17 14:15 07/07/17 14:14 06/09/17 18:15 Psyllium Hydrophilic Mucilloid (Metamucil) 1 pkt THREE TIMES A DAY ORAL 06/07/17 18:00 07/07/17 17:59 06/10/17 09:08 Hima Armstrong M.D. Jun 10, 2017 13:18
[2017-06-10] MEDS ORDERED: Ampicillin 2 GM in NS 110 ML IVPB SCH (14:30)
[2017-06-10] MEDS: Piperacillin/Tazobactam 3.375 GM in D5W 55 ML IVPB SCH ×2 (15:20→22:03)
[2017-06-10 16:00] VITALS: BP 132/69
--- NOTE | 2017-06-10 18:58 | Consultation ---
History of Present Illness General Date patient seen: Jun 10, 2017 Chief Complaint: Abdominal Pain Referring physician: BRIDGETTE TATUM Reason for Consultation: ventral hernia/ abdominal pain Present Illness HPI 26 year old male with history of Crohn's disease presented with acute flare. As per patient, he was doing well until he noted some vague lower abdominal pain. as pain progressed he decided to come to ED for evaluation. states pain ongoing for days prior at admission. pain cramping generalized/lower abdominal pain without radiation. no n/v/f/c. has noted some more mucus from rectum with foul scent. during hospitalization, patient complaining of RLQ tenderness around his rectus abdominis muscle where he states he "has a hernia". On exam was tender in location with some tissue noted and concerns for incarcerated bowel given bacteremia so surgery called to evaluate. patient states that his PCP told him he may have a hernia and he has seen a surgeon in the past who told him he does not but he personally believes he has a hernia. Of note, patient with Diagnosed Crohn's many year ago. He use to take Rx given to him but believes they do not work or help so he has not been taking them for years. In 2011?/2013? he had a flare up which eventually led to a bowel perforation requiring urgent surgery with RLQ ileostomy placement and resection of transverse colon. a year or so later he had a takedown of ileostomy which failed and he was given a LLQ ileostomy. he has also had a midline fistula prior which was operated on. He does not recall other events and his memory of events is vague. he does not have medical records and when asked for them states he "is feeling healthier than ever" and that the past when he was sick may not be as important. Currently admitted for acute Crohn's flare up but refusing meds. He was noted to have bacteremia which is being treated with IV Abx as etiology worked up. Allergies: Coded Allergies: No Known Allergies (Unverified , 06/07/17) Medication History Scheduled Multivitamins* (Multivitamins*), 1 TAB ORAL DAILY, (Reported) Patient History History Provided By: Patient, Medical Record Healthcare decision maker Resuscitation status Advanced Directive on File Past Medical/Surgical History Past Medical/Surgical History: (1) Diastasis recti (2) Dehydration (3) Crohns disease (4) Hypokalemia (5) Abdominal pain (6) Renal stones (7) Ileostomy present (8) Iron deficiency anemia (9) Sepsis due to Enterococcus Review of Systems All Other Systems: negative except mentioned in HPI Physical Exam General Appearance: WD/WN, no apparent distress, alert Lines, tubes and drains: peripheral HEENT: normocephalic, mucous membranes moist, PERRL Neck: normal inspection Respiratory/Chest: normal breath sounds, no respiratory distress, no accessory muscle use Cardiovascular/Chest: normal peripheral pulses, normal rate Abdomen: normal bowel sounds, soft, no organomegaly, no mass, other - prior abdominal scars noted. diastasis of prior midline scar noted. RLQ well healed ostomy scar noted, LLQ ilesotomy viable and fucntional. no hernia noted. umbilicus noted. tender around rectus muscle in lower RLQ but superficial pain not visceral. Extremities: non-tender, normal inspection Skin Exam: normal pigmentation Neurologic: alert, oriented x 3, responsive Last 24 Hour Vital Signs Date Time Temp Pulse Resp B/P (MAP) Pulse Ox O2 Delivery O2 Flow Rate FiO2 06/10/17 16:00 97.5 55 20 132/69 95 Room Air 06/10/17 12:09 98.2 60 20 110/60 97 06/10/17 08:12 98.4 57 20 111/57 97 06/10/17 05:07 98.1 06/10/17 04:00 98.6 71 21 122/64 98 06/10/17 00:00 Room Air 06/10/17 00:00 98.6 52 21 112/55 96 06/09/17 20:00 Room Air 06/09/17 20:00 98.1 52 18 136/82 96 Intake and Output 06/09/17 06/10/17 19:00 07:00 Intake Total 880 ml 825 ml Output Total 800 ml 1250 ml Balance 80 ml -425 ml Intake Oral 880 ml IV Total 825 ml Output Urine Total 800 ml 850 ml Stool Total 400 ml # Voids 3 Laboratory Tests Test 06/10/17 14:40 Lactic Acid Level 0.90 mmol/L (0.66-2.22) Amylase Level 50 U/L (25-115) Height (Feet): 6 Height (Inches): 3.00 Weight (Pounds): 170 Medications Current Medications Medications (Trade) Dose Ordered Sig/Marla Route PRN Reason Start Time Stop Time Status Last Admin Dose Admin Acetaminophen/ Hydrocodone Bitart ([place] 5/325) 1 tab Q4H PRN ORAL Moderate Pain (Pain Scale 4-6) 06/07/17 14:15 06/14/17 14:14 06/10/17 12:28 Dextrose (Dextrose 50%) STAT PRN IV Hypoglycemia 06/07/17 14:15 07/07/17 14:14 Dextrose/Sodium Chloride 1,000 ml @ 75 mls/hr [id number] IV 06/07/17 15:11 07/07/17 15:10 06/10/17 09:09 Diphenhydramine HCl (Benadryl) 25 mg Q6H PRN ORAL Itching/Pruritis 06/07/17 14:15 07/07/17 14:14 Heparin Sodium (Porcine) (Heparin 5000 units/ml) 5,000 units EVERY 12 HOURS SUBQ 06/07/17 21:00 07/07/17 20:59 Iron Sucrose 100 mg/Sodium Chloride 60 ml @ 240 mls/hr BEDTIME IV 06/10/17 21:00 06/14/17 21:14 Lactobacillus Acidophilus (Culturelle) 1 tab THREE TIMES A DAY ORAL 06/07/17 18:00 07/07/17 17:59 06/10/17 18:04 Lorazepam (Ativan) 1 mg Q8HR PRN ORAL For Anxiety 06/08/17 23:00 06/15/17 22:59 06/10/17 15:19 Morphine Sulfate (Morphine Sulfate) 2 mg Q4H PRN IVP Severe Pain (Pain Scale 7-10) 06/07/17 14:15 06/14/17 14:14 06/10/17 18:04 Ondansetron HCl (Zofran) 4 mg Q6H PRN IVP Nausea & Vomiting 06/07/17 14:15 07/07/17 14:14 06/09/17 18:15 Piperacillin Sod/ Tazobactam Sod 3.375 gm/Dextrose 55 ml @ 13.75 mls/ hr EVERY 8 HOURS IVPB 06/10/17 15:00 06/15/17 14:59 06/10/17 15:20 Psyllium Hydrophilic Mucilloid (Metamucil) 1 pkt THREE TIMES A DAY ORAL 06/07/17 18:00 07/07/17 17:59 06/10/17 18:04 Assessment/Plan Problem List: (1) Abdominal pain ICD Codes: R10.9 - Unspecified abdominal pain SNOMED: 44312991 (2) Diastasis recti ICD Codes: M62.08 - Separation of muscle (nontraumatic), other site SNOMED: 93437674 Status: stable Assessment/Plan 26M with acute Crohn's flare up who had focal right lower superficial abdominal pain around the rectus muscle. patient believed he has a hernia and stated he has hernia in that area which was getting worse. tender on palpation in area. concerns for incarcerated hernia so surgery called. CT scan reviewed and no hernia identified. CT correlated with physical exam and no hernia noted. diastasis of reci muscle noted secondary to prior surgery. focal superficial RLQ tenderness around rectus muscle is very close to the prior ileostomy site. after discussion patient state that he has had similar symptoms since his RLQ ileostomy was taken down. likely has scar tissue that is causing discomfort as on exam and CT there is no organic etiology for symptoms. possible superficial nerve injury with closure? fortunately though no hernia nor incarcerated bowel noted. -diet as per GI -abx as per ID -will follow with recs thank you for this consultation. Chris Goel Jun 10, 2017 18:58
--- NOTE | 2017-06-10 19:30 | Consultation ---
DATE OF CONSULTATION: 06/10/2017 INFECTIOUS DISEASES CONSULTATION CONSULTING PHYSICIAN: Hima Armstrong M.D. REQUESTING PHYSICIAN: Vince St M.D. REASON FOR CONSULTATION: Bacteremia with Enterococcus faecalis. Recommendation for antibiotics treatment and further management. HISTORY OF PRESENT ILLNESS: The patient is a 26-year-old male with history of Crohn disease complicated with bowel perforation status post resection of the transverse colon in 2012 and ileostomy placement, which was done in 2013 presented to the emergency room at [facility] with sudden onset of abdominal pain started on 06/07/2017. It was associated with nausea, did not vomit. His pain was sharp intermittent, provoked with local pressure on the right side of his previous surgery where he have abdominal hernia at this point. He is not aware of anything relieved his abdominal pain and nothing makes it worse. The patient was nauseated most of the time, but today his nausea has improved. His stool has been watery in his ileostomy bag. No evidence of melena or blood in the ileostomy bag. He denied fever or chills. He is not on any medication for Crohn disease. He just recently moved to [place] from [place] and he did not establish care here at all yet. The patient had blood culture on admission, one set grew Enterococcus faecalis, pansensitive. So, I was consulted by the primary provider team for antibiotics treatment and further management of his Enterococcus faecalis bacteremia. REVIEW OF SYSTEM: A 14-point of systems reviewed were all negative apart from the one I mentioned above in my History and Physical. PAST MEDICAL HISTORY: Significant for Crohn disease complicated with perforation status post resection of the transverse colon and ileostomy placement. PAST SURGICAL HISTORY: He had ileostomy and transverse colon resection. MEDICATIONS: The patient currently on Ativan, iron sucrose, heparin, Metamucil, Zofran, Benadryl, morphine, and hydrocodone. ALLERGIES: He has no known drug allergy. SOCIAL HISTORY: The patient currently lives in [place], recently moved from [place]. Denies any drugs, tobacco, or alcohol abuse. FAMILY HISTORY: Negative and noncontributory. PHYSICAL EXAMINATION: VITAL SIGNS: Temperature 98.2 degrees, pulse 60, respirations 20, blood pressure 110/60, and saturation 97% on room air. GENERAL: A young male, lying in bed, awake, alert, oriented, not in distress. HEENT: Normocephalic and atraumatic. Pupils are reactive to light. Moist oral mucosa. No exudate. NECK: Supple. No lymphadenopathy. CARDIOVASCULAR: Regular rate and rhythm. No murmur or gallop. LUNGS: Clear bilaterally. No wheezing or rhonchi. ABDOMEN: He had left lower quadrant ileostomy bag with greenish liquidish stool in it. Lower midline surgical scar. Abdominal hernia right next to the surgical scar, not reducible, tender to local palpation. Positive bowel sounds through the abdominal hernia. EXTREMITIES: No edema or cyanosis. SKIN: No rash or hives. No ulceration. No redness or cellulitis. LABORATORY DATA: Labs showed white count of 4.1, hemoglobin of 13.9, platelet count of 245. BUN of 9, creatinine of 0.8. AST of 16 and ALT of 17. Urinalysis showed negative leukocyte esterase, negative nitrite, and occasional bacteria. Microbiology, blood culture on 06/07/2017 grew Enterococcus faecalis, pansensitive. Stool C. diff so far negative. IMAGING: CT scan of the abdomen and pelvis with contrast showed evidence of prior subtotal colectomy and left lower quadrant ileostomy. No evidence of bowel obstruction, thickening of some proximal small bowel loops in the left abdomen noted, although evaluation is limited without oral contrast. These finding may be reflective of enteritis, infectious or inflammatory in etiology. Multiple prominent mesenteric lymph nodes are seen likely reactive. There is focal soft tissue defect or ulceration in the umbilical area. ASSESSMENT AND RECOMMENDATION: 1. Sepsis due to Enterococcus faecalis, source most likely is gastrointestinal tract, enteritis versus incarceration. We will start the patient on Zosyn, empiric coverage, and order 2D echocardiogram to rule out endocarditis. We will repeat blood culture to confirm clearance. Recommend surgical evaluation as soon as possible to rule out incarceration or bowel damage. 2. Crohn disease, not on any medications. Gastroenterology is following. 3. Abdominal pain with hernia and nonreducible bowel through his hernia, rule out incarceration. Gastrointestinal team is following. We will consult General Surgery for further evaluation and management. We will order x-ray of the abdomen and lactic acid with amylase level. 4. Ileostomy. Presently continue local care as needed. Thank you for the consult. Infectious Disease will continue to follow. Hima Armstrong M.D. DR: Zane JOB#: [id number] CC:
[2017-06-10 20:01] VITALS: BP 127/75
[2017-06-10] MEDS: Iron Sucrose 100 MG in NS 55 ML IV SCH (20:29)
--- NOTE | 2017-06-10 22:03 | Nephrology Progress Note ---
Assessment/Plan Problem List: (1) Hypokalemia (2) Renal stones (3) Ileostomy present (4) Dehydration (5) Crohns disease (6) Abdominal pain Plan F/u with surgeons rec - no surgery indicated Pain management prn Monitor lytes, correct prn Abx per ID Continue ileostomy care AM labs Subjective Constitutional: Denies: no symptoms, chills, diaphoresis, fever, malaise, weakness, other HEENT: Denies: no symptoms, eye pain, blurred vision, tearing, double vision, ear pain, ear discharge, nose pain, nose congestion, throat pain, throat swelling, mouth pain, mouth swelling, other Genitourinary: Denies: no symptoms, burning, discharge, frequency, flank pain, hematuria, incontinence, pain, urgency, other Neurologic/Psychiatric: Denies: no symptoms, anxiety, depressed, emotional problems, headache, numbness, paresthesia, pre-existing deficit, seizure, tingling, tremors, weakness, other Subjective In no apparent distress Objective Objective Last 24 Hour Vital Signs Date Time Temp Pulse Resp B/P (MAP) Pulse Ox O2 Delivery O2 Flow Rate FiO2 06/10/17 20:01 98.1 54 17 127/75 97 Room Air 06/10/17 16:00 97.5 55 20 132/69 95 Room Air 06/10/17 12:09 98.2 60 20 110/60 97 06/10/17 08:12 98.4 57 20 111/57 97 06/10/17 05:07 98.1 06/10/17 04:00 98.6 71 21 122/64 98 06/10/17 00:00 Room Air 06/10/17 00:00 98.6 52 21 112/55 96 Intake and Output 06/09/17 06/10/17 19:00 07:00 Intake Total 880 ml 825 ml Output Total 800 ml 1250 ml Balance 80 ml -425 ml Intake Oral 880 ml IV Total 825 ml Output Urine Total 800 ml 850 ml Stool Total 400 ml # Voids 3 Laboratory Tests 06/10/17 14:40: Lactic Acid Level 0.90, Amylase Level 50 Height (Feet): 6 Height (Inches): 3.00 Weight (Pounds): 170 General Appearance: no apparent distress, alert EENT: normal ENT inspection Neck: normal alignment, supple Cardiovascular: normal rate, regular rhythm, no JVD Respiratory/Chest: lungs clear, normal breath sounds Abdomen: soft, other - left ileostomy Extremities: non-tender, normal inspection, no calf tenderness Neurologic: alert, oriented x 3, responsive, normal mood/affect Lucy Patton N.P. Jun 10, 2017 22:03
[2017-06-11] VITALS: BP 121/57
[2017-06-11] MEDS: Morphine Sulfate 2mg/ml Inj IVP PRN ×5 (03:18→22:14)
[2017-06-11 03:37] VITALS: BP 103/62
[2017-06-11] MEDS: Piperacillin/Tazobactam 3.375 GM in D5W 55 ML IVPB SCH ×3 (05:09→22:13)
--- NOTE | 2017-06-11 07:33 | Cardiology Report ---
APPROVED REPORT EXAM: Two-dimensional and M-mode echocardiogram with Doppler and color Doppler. INDICATION Endocarditis M-Mode DIMENSIONS IVSd0.8 (0.7-1.1cm)Left Atrium (MM)3.2 (1.6-4.0cm) LVDd4.8 (3.5-5.6cm)Aortic Root3.1 (2.0-3.7cm) PWd1.0 (0.7-1.1cm)Aortic Cusp Exc.2.0 (1.5-2.0cm) LVDs3.2 (2.5-4.0cm) PWs0.9 cm Normal left ventricular chamber size, systolic function and wall motion. Left ventricular ejection fraction estimated to be 55-60 %. No evidence of left ventricular hypertrophy. No evidence of pericardial or pleural effusion. All other cardiac chamber sizes are within normal limits. Focal aortic valve sclerosis with adequate cusp excursion. Thickened mitral valve leaflets with normal excursion. Mild mitral annulus and aortic root calcification. Pulmonic valve not well visualized. Normal tricuspid valve structure. IVC is not obtainable. A color flow and spectral Doppler study was performed and revealed: No aortic regurgitation. No mitral regurgitation. Normal mitral diastolic function. No tricuspid regurgitation.
[2017-06-11 08:00] VITALS: BP 124/69
[2017-06-11] MEDS: Metamucil Pkt ORAL SCH ×3 (08:04→17:22)
[2017-06-11] MEDS: Lactobacillus-GG tablet ORAL SCH ×3 (08:04→17:22)
[2017-06-11] MEDS: Heparin 5000 units/ml inj SUBQ SCH ×2 (08:58→20:12)
[2017-06-11] MEDS: D5 1/2NS 1,000 ML IV SCH ×2 (09:59→17:22)
[2017-06-11 12:00] VITALS: BP 142/77
--- NOTE | 2017-06-11 12:37 | Infectious Diseases Prog Note ---
Assessment/Plan Problems: (1) Sepsis due to Enterococcus Assessment & Plan: source is GI tract , ? enteritis less likely incarceration , on zosyn empiric coverage , 2D echo didn't show any vegetations , will repeat blood culture to confirm clearance (2) Crohns disease Assessment & Plan: not on meds, GI is following (3) Abdominal pain Assessment & Plan: with hernia, and non reducible bowel , rule out incarceration of his hernia , GI is following , general surgery evaluated the patient , no surgical intervention is needed (4) Ileostomy present Assessment & Plan: continue local care Subjective Constitutional: Reports: no symptoms HEENT: Reports: no symptoms Respiratory: Reports: no symptoms Breasts: Reports: no symptoms Cardiovascular: Reports: no symptoms Gastrointestinal/Abdominal: Reports: bloating, other - abdominal pain Genitourinary: Reports: no symptoms Neurologic: Reports: no symptoms Psychiatric: Reports: no symptoms Skin: Reports: no symptoms Endocrine: Reports: no symptoms Hematologic: Reports: no symptoms Musculoskeletal: Reports: no symptoms Allergies: Coded Allergies: No Known Allergies (Unverified , 06/07/17) Objective Vital Signs Last 24 Hour Vital Signs Date Time Temp Pulse Resp B/P (MAP) Pulse Ox O2 Delivery O2 Flow Rate FiO2 06/11/17 08:00 97.3 58 20 124/69 98 06/11/17 03:48 96.6 06/11/17 03:37 96.6 54 20 103/62 96 Room Air 06/11/17 00:00 97.8 53 18 121/57 97 Room Air 06/10/17 20:01 98.1 54 17 127/75 97 Room Air 06/10/17 16:00 97.5 55 20 132/69 95 Room Air Height (Feet): 6 Height (Inches): 3.00 Weight (Pounds): 170 General Appearance: WD/WN, no acute distress HEENT: normocephalic, atraumatic, anicteric, mucous membranes moist, PERRL, EOMI, pharynx normal, supple, no JVD Respiratory/Chest: chest wall non-tender, lungs clear, normal breath sounds, no respiratory distress, no accessory muscle use Cardiovascular: normal peripheral pulses, normal rate, regular rhythm, no gallop/murmur, no JVD Abdomen: no organomegaly, non distended, no mass, hypoactive bowel sounds, tender, hernia, other - left illiostomy bag Extremities: no cyanosis, no clubbing Skin: no rash, no lesions, no ulcers Laboratory Tests Test 06/10/17 14:40 Lactic Acid Level 0.90 mmol/L (0.66-2.22) Amylase Level 50 U/L (25-115) Current Medications Medications (Trade) Dose Ordered Sig/Marla Route PRN Reason Start Time Stop Time Status Last Admin Dose Admin Acetaminophen/ Hydrocodone Bitart ([place] 5/325) 1 tab Q4H PRN ORAL Moderate Pain (Pain Scale 4-6) 06/07/17 14:15 06/14/17 14:14 06/10/17 12:28 Dextrose (Dextrose 50%) STAT PRN IV Hypoglycemia 06/07/17 14:15 07/07/17 14:14 Dextrose/Sodium Chloride 1,000 ml @ 75 mls/hr [id number] IV 06/07/17 15:11 07/07/17 15:10 06/11/17 09:59 Diphenhydramine HCl (Benadryl) 25 mg Q6H PRN ORAL Itching/Pruritis 06/07/17 14:15 07/07/17 14:14 Heparin Sodium (Porcine) (Heparin 5000 units/ml) 5,000 units EVERY 12 HOURS SUBQ 06/07/17 21:00 07/07/17 20:59 Iron Sucrose 100 mg/Sodium Chloride 60 ml @ 240 mls/hr BEDTIME IV 06/10/17 21:00 06/14/17 21:14 06/10/17 20:29 Lactobacillus Acidophilus (Culturelle) 1 tab THREE TIMES A DAY ORAL 06/07/17 18:00 07/07/17 17:59 06/11/17 08:04 Lorazepam (Ativan) 1 mg Q6H PRN ORAL For Anxiety 06/11/17 01:00 06/18/17 00:59 Morphine Sulfate (Morphine Sulfate) 2 mg Q4H PRN IVP Severe Pain (Pain Scale 7-10) 06/07/17 14:15 06/14/17 14:14 06/11/17 12:28 Ondansetron HCl (Zofran) 4 mg Q6H PRN IVP Nausea & Vomiting 06/07/17 14:15 07/07/17 14:14 06/09/17 18:15 Piperacillin Sod/ Tazobactam Sod 3.375 gm/Dextrose 55 ml @ 13.75 mls/ hr EVERY 8 HOURS IVPB 06/10/17 15:00 06/15/17 14:59 06/11/17 05:09 Psyllium Hydrophilic Mucilloid (Metamucil) 1 pkt THREE TIMES A DAY ORAL 06/07/17 18:00 07/07/17 17:59 06/11/17 08:04 Hima Armstrong M.D. Jun 11, 2017 12:37
[2017-06-11 13:21] LABS: BASOPHILS % (AUTO) 1.1 % (0.0-2.0); EOSINOPHILS % (AUTO) 3.1 % (0.0-3.0); LYMPHOCYTES % (AUTO) 20.3 % (20.0-45.0); MEAN CORPUSCULAR HEMOGLOBIN 29.7 PG (27.0-31.0); MEAN CORPUSCULAR HGB CONC 32.3 G/DL (32.0-36.0); MEAN CORPUSCULAR VOLUME 92 FL (80-99); MEAN PLATELET VOLUME 5.9 FL (6.5-10.1); MONOCYTES % (AUTO) 5.1 % (1.0-10.0); NEUTROPHILS % (AUTO) 70.4 % (45.0-75.0); PLATELET COUNT 299 K/UL (150-450); RED BLOOD COUNT 5.01 M/UL (4.70-6.10); WHITE BLOOD COUNT 6.6 K/UL (4.8-10.8)
[2017-06-11] MEDS: LORazepam 1mg tab ORAL PRN ×2 (13:23→23:11)
[2017-06-11 13:47] LABS: ALANINE AMINOTRANSFERASE 21 U/L (12-78); ALBUMIN/GLOBULIN RATIO 0.6 (1.0-2.7); ANION GAP 7 mmol/L (5-15); ASPARTATE AMINO TRANSFERASE 16 U/L (15-37); CALCIUM 8.4 MG/DL (8.5-10.1); CARBON DIOXIDE 31 MMOL/L (21-32); CHLORIDE 101 MMOL/L (98-107); GLOMERULAR FILTRATION RATE > 60 mL/min (>60); POTASSIUM 4.1 MMOL/L (3.5-5.1); SODIUM 139 MMOL/L (136-145); TOTAL PROTEIN 8.2 G/DL (6.4-8.2)
--- NOTE | 2017-06-11 14:44 | GI Progress Note ---
Assessment/Plan Problems: (1) Iron deficiency anemia ICD Codes: D50.9 - Iron deficiency anemia, unspecified SNOMED: 97600342 (2) Ileostomy present ICD Codes: Z93.2 - Ileostomy status SNOMED: 969679140 (3) Abdominal pain ICD Codes: R10.9 - Unspecified abdominal pain SNOMED: 78033759 (4) Crohns disease ICD Codes: K50.90 - Crohn's disease, unspecified, without complications SNOMED: 40867136 (5) Dehydration ICD Codes: E86.0 - Dehydration SNOMED: 59294598 (6) Sepsis due to Enterococcus ICD Codes: A41.81 - Sepsis due to Enterococcus SNOMED: 908511318, 875634900 Status: stable Status Narrative Discussed with Dr. Chisholm. Assessment/Plan neg stool C.diff okay for DC per GI standpoint patient refusing steroids or any other medications for CD pain control tolerating diet iv iron abx per ID fu labs Subjective Subjective abdominal pain watery stool Objective Last 24 Hour Vital Signs Date Time Temp Pulse Resp B/P (MAP) Pulse Ox O2 Delivery O2 Flow Rate FiO2 06/11/17 12:00 97.3 68 20 142/77 99 06/11/17 08:00 97.3 58 20 124/69 98 06/11/17 03:48 96.6 06/11/17 03:37 96.6 54 20 103/62 96 Room Air 06/11/17 00:00 97.8 53 18 121/57 97 Room Air 06/10/17 20:01 98.1 54 17 127/75 97 Room Air 06/10/17 16:00 97.5 55 20 132/69 95 Room Air Intake and Output 06/10/17 06/11/17 19:00 07:00 Intake Total 1331.25 ml 1317.50 ml Output Total 500 ml 1650 ml Balance 831.25 ml -332.50 ml Intake Oral 840 ml 800 ml IV Total 491.25 ml 517.50 ml Output Urine Total 1250 ml Stool Total 500 ml 400 ml Laboratory Tests Test 06/11/17 12:40 White Blood Count 6.6 K/UL (4.8-10.8) Red Blood Count 5.01 M/UL (4.70-6.10) Hemoglobin 14.9 G/DL (14.2-18.0) Hematocrit 46.0 % (42.0-52.0) Mean Corpuscular Volume 92 FL (80-99) Mean Corpuscular Hemoglobin 29.7 PG (27.0-31.0) Mean Corpuscular Hemoglobin Concent 32.3 G/DL (32.0-36.0) Red Cell Distribution Width 12.0 % (11.6-14.8) Platelet Count 299 K/UL (150-450) Mean Platelet Volume 5.9 FL (6.5-10.1) L Neutrophils (%) (Auto) 70.4 % (45.0-75.0) Lymphocytes (%) (Auto) 20.3 % (20.0-45.0) Monocytes (%) (Auto) 5.1 % (1.0-10.0) Eosinophils (%) (Auto) 3.1 % (0.0-3.0) H Basophils (%) (Auto) 1.1 % (0.0-2.0) Sodium Level 139 MMOL/L (136-145) Potassium Level 4.1 MMOL/L (3.5-5.1) Chloride Level 101 MMOL/L (98-107) Carbon Dioxide Level 31 MMOL/L (21-32) Anion Gap 7 mmol/L (5-15) Blood Urea Nitrogen 11 mg/dL (7-18) Creatinine 1.0 MG/DL (0.55-1.30) Estimat Glomerular Filtration Rate > 60 mL/min (>60) Glucose Level 87 MG/DL (74-106) Calcium Level 8.4 MG/DL (8.5-10.1) L Total Bilirubin 0.4 MG/DL (0.2-1.0) Aspartate Amino Transf (AST/SGOT) 16 U/L (15-37) Alanine Aminotransferase (ALT/SGPT) 21 U/L (12-78) Alkaline Phosphatase 81 U/L (46-116) Total Protein 8.2 G/DL (6.4-8.2) Albumin 3.2 G/DL (3.4-5.0) L Globulin 5.0 g/dL Albumin/Globulin Ratio 0.6 (1.0-2.7) L Height (Feet): 6 Height (Inches): 3.00 Weight (Pounds): 170 General Appearance: WD/WN, no apparent distress, alert Cardiovascular: normal rate Respiratory/Chest: normal breath sounds, no respiratory distress Abdominal Exam: normal bowel sounds, non tender, soft, other - colostomy Extremities: normal range of motion, non-tender Pia Bell N.P. Jun 11, 2017 14:44
--- NOTE | 2017-06-11 15:42 | General Surgery Progress Note ---
General Surgery-Progress Note Subjective Symptoms: improved Additional Comments doing well. comfortable. states he wanted to go home soon. no n/v/f/c. ostomy functional. Objective Last 24 Hour Vital Signs Date Time Temp Pulse Resp B/P (MAP) Pulse Ox O2 Delivery O2 Flow Rate FiO2 06/11/17 12:00 97.3 68 20 142/77 99 06/11/17 08:00 97.3 58 20 124/69 98 06/11/17 03:48 96.6 06/11/17 03:37 96.6 54 20 103/62 96 Room Air 06/11/17 00:00 97.8 53 18 121/57 97 Room Air 06/10/17 20:01 98.1 54 17 127/75 97 Room Air 06/10/17 16:00 97.5 55 20 132/69 95 Room Air I&O Intake and Output 06/10/17 06/11/17 19:00 07:00 Intake Total 1331.25 ml 1317.50 ml Output Total 500 ml 1650 ml Balance 831.25 ml -332.50 ml Intake Oral 840 ml 800 ml IV Total 491.25 ml 517.50 ml Output Urine Total 1250 ml Stool Total 500 ml 400 ml Cardiovascular: RSR Respiratory: clear Abdomen: soft, flat, present bowel sounds, other - ostomy viable/functional, midline diastasis and scars noted. no hernia. still genderness on deep palpation but no rebound/guarding/peritonitis. Extremities: no tenderness Laboratory Tests Test 06/11/17 12:40 White Blood Count 6.6 K/UL (4.8-10.8) Red Blood Count 5.01 M/UL (4.70-6.10) Hemoglobin 14.9 G/DL (14.2-18.0) Hematocrit 46.0 % (42.0-52.0) Mean Corpuscular Volume 92 FL (80-99) Mean Corpuscular Hemoglobin 29.7 PG (27.0-31.0) Mean Corpuscular Hemoglobin Concent 32.3 G/DL (32.0-36.0) Red Cell Distribution Width 12.0 % (11.6-14.8) Platelet Count 299 K/UL (150-450) Mean Platelet Volume 5.9 FL (6.5-10.1) L Neutrophils (%) (Auto) 70.4 % (45.0-75.0) Lymphocytes (%) (Auto) 20.3 % (20.0-45.0) Monocytes (%) (Auto) 5.1 % (1.0-10.0) Eosinophils (%) (Auto) 3.1 % (0.0-3.0) H Basophils (%) (Auto) 1.1 % (0.0-2.0) Sodium Level 139 MMOL/L (136-145) Potassium Level 4.1 MMOL/L (3.5-5.1) Chloride Level 101 MMOL/L (98-107) Carbon Dioxide Level 31 MMOL/L (21-32) Anion Gap 7 mmol/L (5-15) Blood Urea Nitrogen 11 mg/dL (7-18) Creatinine 1.0 MG/DL (0.55-1.30) Estimat Glomerular Filtration Rate > 60 mL/min (>60) Glucose Level 87 MG/DL (74-106) Calcium Level 8.4 MG/DL (8.5-10.1) L Total Bilirubin 0.4 MG/DL (0.2-1.0) Aspartate Amino Transf (AST/SGOT) 16 U/L (15-37) Alanine Aminotransferase (ALT/SGPT) 21 U/L (12-78) Alkaline Phosphatase 81 U/L (46-116) Total Protein 8.2 G/DL (6.4-8.2) Albumin 3.2 G/DL (3.4-5.0) L Globulin 5.0 g/dL Albumin/Globulin Ratio 0.6 (1.0-2.7) L Plan Problems: (1) Abdominal pain (2) Diastasis recti Assessment & Plan: 26F with hx of complicated crohn's disease s/p two prior surgeries and a LLQ ostomy presented with crohn's flare. during admission c/o abdominal pain in RLQ and with bacteremia. possibly believed to be from incarcerated hernia? patient examined and CT reviewed. he has a moderate diastasis on abdominal wall but no hernia. pain likely secondary to active crohn's disease. patient currently on ABX but refuses IBD medicaiton. -no acute surgical intervention necessary. -cont with abx -repeat blood cx -will follow. thank you for this consult. Chris Goel Jun 11, 2017 15:42
[2017-06-11 16:00] VITALS: BP 125/71
[2017-06-11] MEDS ORDERED: Tubing IV Secondary IV ONE (18:05)
[2017-06-11] MEDS ORDERED: D5 1/2NS 1000ml IV ONE ×2 (18:05→18:06)
[2017-06-11 20:00] VITALS: BP 145/81
[2017-06-11] MEDS: Iron Sucrose 100 MG in NS 55 ML IV SCH (20:11)
--- NOTE | 2017-06-11 23:47 | Nephrology Progress Note ---
Objective Objective Last 24 Hour Vital Signs Date Time Temp Pulse Resp B/P (MAP) Pulse Ox O2 Delivery O2 Flow Rate FiO2 06/11/17 22:44 98.2 06/11/17 20:00 98.2 82 21 145/81 96 06/11/17 20:00 96 Room Air 06/11/17 16:00 97.3 72 20 125/71 98 06/11/17 12:00 97.3 68 20 142/77 99 06/11/17 08:00 97.3 58 20 124/69 98 06/11/17 03:37 96.6 54 20 103/62 96 Room Air 06/11/17 00:00 97.8 53 18 121/57 97 Room Air Intake and Output 06/10/17 06/11/17 19:00 07:00 Intake Total 1331.25 ml 1317.50 ml Output Total 500 ml 1650 ml Balance 831.25 ml -332.50 ml Intake Oral 840 ml 800 ml IV Total 491.25 ml 517.50 ml Output Urine Total 1250 ml Stool Total 500 ml 400 ml Laboratory Tests 06/11/17 12:40: White Blood Count 6.6, Red Blood Count 5.01, Hemoglobin 14.9, Hematocrit 46.0, Mean Corpuscular Volume 92, Mean Corpuscular Hemoglobin 29.7, Mean Corpuscular Hemoglobin Concent 32.3, Red Cell Distribution Width 12.0, Platelet Count 299, Mean Platelet Volume 5.9L, Neutrophils (%) (Auto) 70.4, Lymphocytes (%) (Auto) 20.3, Monocytes (%) (Auto) 5.1, Eosinophils (%) (Auto) 3.1H, Basophils (%) (Auto ) 1.1, Sodium Level 139, Potassium Level 4.1, Chloride Level 101, Carbon Dioxide Level 31, Anion Gap 7, Blood Urea Nitrogen 11, Creatinine 1.0, Estimat Glomerular Filtration Rate > 60, Glucose Level 87, Calcium Level 8.4L, Total Bilirubin 0.4, Aspartate Amino Transf (AST/SGOT) 16, Alanine Aminotransferase ( ALT/SGPT) 21, Alkaline Phosphatase 81, Total Protein 8.2, Albumin 3.2L, Globulin 5.0, Albumin/Globulin Ratio 0.6L Height (Feet): 6 Height (Inches): 3.00 Weight (Pounds): 170 MIRAHMADI,BRIDGETTE Jun 11, 2017 23:47
[2017-06-12] VITALS: BP 133/76
[2017-06-12] MEDS: Morphine Sulfate 2mg/ml Inj IVP PRN ×3 (02:17→10:29)
--- NOTE | 2017-06-12 03:30 | Consultation ---
DATE OF CONSULTATION: CONSULTING PHYSICIAN: Lester Bansal M.D. HISTORY: This 26-year-old male came to the emergency room for abdominal pain, nausea and vomiting. The patient also has past medical history of small-bowel obstruction, status post surgery. He has a colostomy bag. He is currently doing better, tolerating diet. PAST MEDICAL HISTORY: Small bowel obstruction. ALLERGIES: NKA. MEDICATIONS: See the list. PHYSICAL EXAMINATION: GENERAL: This is a young male, who is currently awake, comfortable, sitting in the bed, asking more food. VITAL SIGNS: Blood pressure is 110/70, pulse 68, and respirations 18. No fever. SKIN: Good skin turgor. HEENT: NAD. CHEST: Bilaterally clear. CARDIOVASCULAR: Regular rhythm. No gallop. No murmur. ABDOMEN: Soft. EXTREMITIES: CCE. NEUROLOGICALLY: No focal deficit. ASSESSMENT AND PLAN: 1. Abdominal pain. 2. History of abdominal wound. 3. Status post colostomy. We will currently continue current treatment and advance diet. Continue IV fluid. GI is on case. Lester Bansal M.D. DR: LEANDRO JOB#: [id number] CC:
[2017-06-12 04:11] VITALS: BP 116/58
[2017-06-12] MEDS: Piperacillin/Tazobactam 3.375 GM in D5W 55 ML IVPB SCH ×3 (04:57→21:37)
[2017-06-12 06:39] LABS: BASOPHILS % (AUTO) 1.1 % (0.0-2.0); EOSINOPHILS % (AUTO) 3.2 % (0.0-3.0); LYMPHOCYTES % (AUTO) 20.7 % (20.0-45.0); MEAN CORPUSCULAR HEMOGLOBIN 30.9 PG (27.0-31.0); MEAN CORPUSCULAR HGB CONC 34.4 G/DL (32.0-36.0); MEAN CORPUSCULAR VOLUME 90 FL (80-99); MEAN PLATELET VOLUME 6.5 FL (6.5-10.1); MONOCYTES % (AUTO) 6.8 % (1.0-10.0); NEUTROPHILS % (AUTO) 68.2 % (45.0-75.0); PLATELET COUNT 272 K/UL (150-450); RED BLOOD COUNT 4.74 M/UL (4.70-6.10); RED CELL DISTRIBUTION WIDTH 11.4 % (11.6-14.8); WHITE BLOOD COUNT 7.8 K/UL (4.8-10.8)
[2017-06-12 06:43] LABS: ANION GAP 6 mmol/L (5-15); CALCIUM 8.4 MG/DL (8.5-10.1); CARBON DIOXIDE 30 MMOL/L (21-32); CHLORIDE 101 MMOL/L (98-107); CREATININE 1.1 MG/DL (0.55-1.30); GLOMERULAR FILTRATION RATE > 60 mL/min (>60); POTASSIUM 4.2 MMOL/L (3.5-5.1); SODIUM 137 MMOL/L (136-145)
[2017-06-12 08:00] VITALS: BP 110/69
[2017-06-12] MEDS: Lactobacillus-GG tablet ORAL SCH ×3 (08:09→17:57)
[2017-06-12] MEDS: Metamucil Pkt ORAL SCH ×3 (08:10→17:57)
[2017-06-12] MEDS: Heparin 5000 units/ml inj SUBQ SCH (08:14)
[2017-06-12] MEDS: LORazepam 1mg tab ORAL PRN ×3 (08:17→20:54)
[2017-06-12] MEDS: D5 1/2NS 1,000 ML IV SCH (10:34)
--- NOTE | 2017-06-12 10:53 | GI Progress Note ---
Assessment/Plan Problems: (1) Iron deficiency anemia ICD Codes: D50.9 - Iron deficiency anemia, unspecified SNOMED: 95983615 (2) Ileostomy present ICD Codes: Z93.2 - Ileostomy status SNOMED: 044211860 (3) Abdominal pain ICD Codes: R10.9 - Unspecified abdominal pain SNOMED: 58863351 (4) Crohns disease ICD Codes: K50.90 - Crohn's disease, unspecified, without complications SNOMED: 70399373 (5) Dehydration ICD Codes: E86.0 - Dehydration SNOMED: 79557656 (6) Sepsis due to Enterococcus ICD Codes: A41.81 - Sepsis due to Enterococcus SNOMED: 743030895, 841226984 Status: stable Status Narrative Discussed with Dr. Chisholm. Assessment/Plan neg stool C.diff okay for DC per GI standpoint patient refusing steroids or any other medications for CD pain control cont Metamucil cont lactobacillus tolerating diet, low residual iv iron abx per ID fu labs outpatient colonoscopy for ileostomy takedown Subjective Subjective abdominal pain watery stool Objective Last 24 Hour Vital Signs Date Time Temp Pulse Resp B/P (MAP) Pulse Ox O2 Delivery O2 Flow Rate FiO2 06/12/17 08:00 97.3 60 20 110/69 98 06/12/17 06:46 97.8 06/12/17 04:15 96 Room Air 06/12/17 04:11 97.8 55 21 116/58 96 Room Air 06/12/17 00:00 97.9 56 21 133/76 97 06/12/17 00:00 97 Room Air 06/11/17 20:00 98.2 82 21 145/81 96 06/11/17 20:00 96 Room Air 06/11/17 16:01 Room Air 06/11/17 16:00 97.3 72 20 125/71 98 06/11/17 12:01 Room Air 06/11/17 12:00 97.3 68 20 142/77 99 Intake and Output 06/11/17 06/12/17 19:00 07:00 Intake Total 591.25 ml 517.50 ml Output Total 800 ml Balance 591.25 ml -282.50 ml Intake Oral 160 ml IV Total 431.25 ml 517.50 ml Output Urine Total 800 ml # Voids 3 3 Laboratory Tests Test 06/11/17 12:40 06/12/17 05:05 White Blood Count 6.6 K/UL (4.8-10.8) 7.8 K/UL (4.8-10.8) Red Blood Count 5.01 M/UL (4.70-6.10) 4.74 M/UL (4.70-6.10) Hemoglobin 14.9 G/DL (14.2-18.0) 14.7 G/DL (14.2-18.0) Hematocrit 46.0 % (42.0-52.0) 42.6 % (42.0-52.0) Mean Corpuscular Volume 92 FL (80-99) 90 FL (80-99) Mean Corpuscular Hemoglobin 29.7 PG (27.0-31.0) 30.9 PG (27.0-31.0) Mean Corpuscular Hemoglobin Concent 32.3 G/DL (32.0-36.0) 34.4 G/DL (32.0-36.0) Red Cell Distribution Width 12.0 % (11.6-14.8) 11.4 % (11.6-14.8) L Platelet Count 299 K/UL (150-450) 272 K/UL (150-450) Mean Platelet Volume 5.9 FL (6.5-10.1) L 6.5 FL (6.5-10.1) Neutrophils (%) (Auto) 70.4 % (45.0-75.0) 68.2 % (45.0-75.0) Lymphocytes (%) (Auto) 20.3 % (20.0-45.0) 20.7 % (20.0-45.0) Monocytes (%) (Auto) 5.1 % (1.0-10.0) 6.8 % (1.0-10.0) Eosinophils (%) (Auto) 3.1 % (0.0-3.0) H 3.2 % (0.0-3.0) H Basophils (%) (Auto) 1.1 % (0.0-2.0) 1.1 % (0.0-2.0) Sodium Level 139 MMOL/L (136-145) 137 MMOL/L (136-145) Potassium Level 4.1 MMOL/L (3.5-5.1) 4.2 MMOL/L (3.5-5.1) Chloride Level 101 MMOL/L (98-107) 101 MMOL/L (98-107) Carbon Dioxide Level 31 MMOL/L (21-32) 30 MMOL/L (21-32) Anion Gap 7 mmol/L (5-15) 6 mmol/L (5-15) Blood Urea Nitrogen 11 mg/dL (7-18) 19 mg/dL (7-18) H Creatinine 1.0 MG/DL (0.55-1.30) 1.1 MG/DL (0.55-1.30) Estimat Glomerular Filtration Rate > 60 mL/min (>60) > 60 mL/min (>60) Glucose Level 87 MG/DL (74-106) 91 MG/DL (74-106) Calcium Level 8.4 MG/DL (8.5-10.1) L 8.4 MG/DL (8.5-10.1) L Total Bilirubin 0.4 MG/DL (0.2-1.0) Aspartate Amino Transf (AST/SGOT) 16 U/L (15-37) Alanine Aminotransferase (ALT/SGPT) 21 U/L (12-78) Alkaline Phosphatase 81 U/L (46-116) Total Protein 8.2 G/DL (6.4-8.2) Albumin 3.2 G/DL (3.4-5.0) L Globulin 5.0 g/dL Albumin/Globulin Ratio 0.6 (1.0-2.7) L Height (Feet): 6 Height (Inches): 3.00 Weight (Pounds): 170 General Appearance: WD/WN, no apparent distress, alert Cardiovascular: normal rate Respiratory/Chest: normal breath sounds, no respiratory distress Abdominal Exam: normal bowel sounds, non tender, soft, other - illeostomy Extremities: normal range of motion, non-tender Pia Bell N.P. Jun 12, 2017 10:53
[2017-06-12 12:00] VITALS: BP 113/62
[2017-06-12] MEDS: HYDROmorphone 2mg tab ORAL PRN ×2 (12:45→18:57)
--- NOTE | 2017-06-12 13:28 | Nephrology Progress Note ---
Assessment/Plan Problem List: (1) Hypokalemia (2) Renal stones (3) Ileostomy present (4) Dehydration (5) Crohns disease (6) Abdominal pain Plan F/u with surgeons rec - no surgery indicated Pain management prn Monitor lytes, correct prn Abx per ID Continue ileostomy care AM labs Subjective Constitutional: Denies: no symptoms, chills, diaphoresis, fever, malaise, weakness, other HEENT: Denies: no symptoms, eye pain, blurred vision, tearing, double vision, ear pain, ear discharge, nose pain, nose congestion, throat pain, throat swelling, mouth pain, mouth swelling, other Genitourinary: Denies: no symptoms, burning, discharge, frequency, flank pain, hematuria, incontinence, pain, urgency, other Neurologic/Psychiatric: Denies: no symptoms, anxiety, depressed, emotional problems, headache, numbness, paresthesia, pre-existing deficit, seizure, tingling, tremors, weakness, other Subjective In no apparent distress Objective Objective Last 24 Hour Vital Signs Date Time Temp Pulse Resp B/P (MAP) Pulse Ox O2 Delivery O2 Flow Rate FiO2 06/12/17 12:01 Room Air 06/12/17 12:00 97.3 55 20 113/62 93 06/12/17 08:01 Room Air 06/12/17 08:00 97.3 60 20 110/69 98 06/12/17 06:46 97.8 06/12/17 04:15 96 Room Air 06/12/17 04:11 97.8 55 21 116/58 96 Room Air 06/12/17 00:00 97.9 56 21 133/76 97 06/12/17 00:00 97 Room Air 06/11/17 20:00 98.2 82 21 145/81 96 06/11/17 20:00 96 Room Air 06/11/17 16:01 Room Air 06/11/17 16:00 97.3 72 20 125/71 98 Intake and Output 06/11/17 06/12/17 19:00 07:00 Intake Total 591.25 ml 517.50 ml Output Total 800 ml Balance 591.25 ml -282.50 ml Intake Oral 160 ml IV Total 431.25 ml 517.50 ml Output Urine Total 800 ml # Voids 3 3 Laboratory Tests 12/27/17 05:05: White Blood Count 7.8, Red Blood Count 4.74, Hemoglobin 14.7, Hematocrit 42.6, Mean Corpuscular Volume 90, Mean Corpuscular Hemoglobin 30.9, Mean Corpuscular Hemoglobin Concent 34.4, Red Cell Distribution Width 11.4L, Platelet Count 272, Mean Platelet Volume 6.5, Neutrophils (%) (Auto) 68.2, Lymphocytes (%) (Auto) 20.7, Monocytes (%) (Auto) 6.8, Eosinophils (%) (Auto) 3.2H, Basophils (%) (Auto ) 1.1, Sodium Level 137, Potassium Level 4.2, Chloride Level 101, Carbon Dioxide Level 30, Anion Gap 6, Blood Urea Nitrogen 19H, Creatinine 1.1, Estimat Glomerular Filtration Rate > 60, Glucose Level 91, Calcium Level 8.4L Height (Feet): 6 Height (Inches): 3.00 Weight (Pounds): 170 General Appearance: no apparent distress, alert EENT: normal ENT inspection Neck: normal alignment Cardiovascular: regular rhythm Respiratory/Chest: normal breath sounds, no respiratory distress Abdomen: soft, other - ileostomy Extremities: non-tender Neurologic: alert, oriented x 3, responsive Lucy Patton N.P. Jun 12, 2017 13:28
--- NOTE | 2017-06-12 14:38 | General Surgery Progress Note ---
General Surgery-Progress Note Subjective Symptoms: improved Additional Comments comfortable. no issues. Objective Last 24 Hour Vital Signs Date Time Temp Pulse Resp B/P (MAP) Pulse Ox O2 Delivery O2 Flow Rate FiO2 06/12/17 12:01 Room Air 06/12/17 12:00 97.3 55 20 113/62 93 06/12/17 08:01 Room Air 06/12/17 08:00 97.3 60 20 110/69 98 06/12/17 06:46 97.8 06/12/17 04:15 96 Room Air 06/12/17 04:11 97.8 55 21 116/58 96 Room Air 06/12/17 00:00 97.9 56 21 133/76 97 06/12/17 00:00 97 Room Air 06/11/17 20:00 98.2 82 21 145/81 96 06/11/17 20:00 96 Room Air 06/11/17 16:01 Room Air 06/11/17 16:00 97.3 72 20 125/71 98 I&O Intake and Output 06/11/17 06/12/17 19:00 07:00 Intake Total 591.25 ml 517.50 ml Output Total 800 ml Balance 591.25 ml -282.50 ml Intake Oral 160 ml IV Total 431.25 ml 517.50 ml Output Urine Total 800 ml # Voids 3 3 Laboratory Tests Test 06/12/17 05:05 White Blood Count 7.8 K/UL (4.8-10.8) Red Blood Count 4.74 M/UL (4.70-6.10) Hemoglobin 14.7 G/DL (14.2-18.0) Hematocrit 42.6 % (42.0-52.0) Mean Corpuscular Volume 90 FL (80-99) Mean Corpuscular Hemoglobin 30.9 PG (27.0-31.0) Mean Corpuscular Hemoglobin Concent 34.4 G/DL (32.0-36.0) Red Cell Distribution Width 11.4 % (11.6-14.8) L Platelet Count 272 K/UL (150-450) Mean Platelet Volume 6.5 FL (6.5-10.1) Neutrophils (%) (Auto) 68.2 % (45.0-75.0) Lymphocytes (%) (Auto) 20.7 % (20.0-45.0) Monocytes (%) (Auto) 6.8 % (1.0-10.0) Eosinophils (%) (Auto) 3.2 % (0.0-3.0) H Basophils (%) (Auto) 1.1 % (0.0-2.0) Sodium Level 137 MMOL/L (136-145) Potassium Level 4.2 MMOL/L (3.5-5.1) Chloride Level 101 MMOL/L (98-107) Carbon Dioxide Level 30 MMOL/L (21-32) Anion Gap 6 mmol/L (5-15) Blood Urea Nitrogen 19 mg/dL (7-18) H Creatinine 1.1 MG/DL (0.55-1.30) Estimat Glomerular Filtration Rate > 60 mL/min (>60) Glucose Level 91 MG/DL (74-106) Calcium Level 8.4 MG/DL (8.5-10.1) L Plan Problems: (1) Abdominal pain (2) Diastasis recti Assessment & Plan: 26F with hx of complicated crohn's disease s/p two prior surgeries and a LLQ ostomy presented with crohn's flare. during admission c/o abdominal pain in RLQ and with bacteremia. possibly believed to be from incarcerated hernia? patient examined and CT reviewed. he has a moderate diastasis on abdominal wall but no hernia. pain likely secondary to active crohn's disease. patient currently on ABX but refuses IBD medicaiton. -no acute surgical intervention necessary. -awaiting prior medical records -will follow. thank you for this consult. Chrsi Goel Jun 12, 2017 14:38
--- NOTE | 2017-06-12 16:04 | Infectious Diseases Prog Note ---
Assessment/Plan Problems: (1) Sepsis due to Enterococcus Assessment & Plan: source is GI tract , ? enteritis, less likely incarceration , on zosyn empiric coverage , 2D echo didn't show any vegetations , repeated blood culture to confirm clearance is pending . will treat for 2 weeks from the clearance date (2) Crohns disease Assessment & Plan: not on meds, GI is following (3) Abdominal pain Assessment & Plan: with hernia, and non reducible bowel , rule out incarceration of his hernia , GI is following , general surgery evaluated the patient , no surgical intervention is needed (4) Ileostomy present Assessment & Plan: continue local care Subjective Constitutional: Reports: fatigue HEENT: Reports: no symptoms Respiratory: Reports: no symptoms Breasts: Reports: no symptoms Cardiovascular: Reports: no symptoms Gastrointestinal/Abdominal: Reports: diarrhea, bloating Genitourinary: Reports: no symptoms Neurologic: Reports: no symptoms Psychiatric: Reports: no symptoms Skin: Reports: no symptoms Endocrine: Reports: no symptoms Hematologic: Reports: no symptoms Musculoskeletal: Reports: no symptoms Allergies: Coded Allergies: No Known Allergies (Unverified , 06/07/17) Objective Vital Signs Last 24 Hour Vital Signs Date Time Temp Pulse Resp B/P (MAP) Pulse Ox O2 Delivery O2 Flow Rate FiO2 06/12/17 12:01 Room Air 06/12/17 12:00 97.3 55 20 113/62 93 06/12/17 08:01 Room Air 06/12/17 08:00 97.3 60 20 110/69 98 06/12/17 06:46 97.8 06/12/17 04:15 96 Room Air 06/12/17 04:11 97.8 55 21 116/58 96 Room Air 06/12/17 00:00 97.9 56 21 133/76 97 06/12/17 00:00 97 Room Air 06/11/17 20:00 98.2 82 21 145/81 96 06/11/17 20:00 96 Room Air 06/11/17 16:01 Room Air 06/11/17 16:00 97.3 72 20 125/71 98 Height (Feet): 6 Height (Inches): 3.00 Weight (Pounds): 170 General Appearance: WD/WN, no acute distress HEENT: normocephalic, atraumatic, anicteric, mucous membranes moist Respiratory/Chest: chest wall non-tender, lungs clear, normal breath sounds, no respiratory distress, no accessory muscle use, decreased breath sounds, crackles/rales Cardiovascular: normal peripheral pulses, normal rate, regular rhythm, no gallop/murmur, no JVD Abdomen: normal bowel sounds, soft, non tender, no organomegaly, non distended , no mass Extremities: no cyanosis, no clubbing Skin: no rash, no lesions, no ulcers Neurologic/Psychiatric: alert, responsive Laboratory Tests Test 06/12/17 05:05 White Blood Count 7.8 K/UL (4.8-10.8) Red Blood Count 4.74 M/UL (4.70-6.10) Hemoglobin 14.7 G/DL (14.2-18.0) Hematocrit 42.6 % (42.0-52.0) Mean Corpuscular Volume 90 FL (80-99) Mean Corpuscular Hemoglobin 30.9 PG (27.0-31.0) Mean Corpuscular Hemoglobin Concent 34.4 G/DL (32.0-36.0) Red Cell Distribution Width 11.4 % (11.6-14.8) L Platelet Count 272 K/UL (150-450) Mean Platelet Volume 6.5 FL (6.5-10.1) Neutrophils (%) (Auto) 68.2 % (45.0-75.0) Lymphocytes (%) (Auto) 20.7 % (20.0-45.0) Monocytes (%) (Auto) 6.8 % (1.0-10.0) Eosinophils (%) (Auto) 3.2 % (0.0-3.0) H Basophils (%) (Auto) 1.1 % (0.0-2.0) Sodium Level 137 MMOL/L (136-145) Potassium Level 4.2 MMOL/L (3.5-5.1) Chloride Level 101 MMOL/L (98-107) Carbon Dioxide Level 30 MMOL/L (21-32) Anion Gap 6 mmol/L (5-15) Blood Urea Nitrogen 19 mg/dL (7-18) H Creatinine 1.1 MG/DL (0.55-1.30) Estimat Glomerular Filtration Rate > 60 mL/min (>60) Glucose Level 91 MG/DL (74-106) Calcium Level 8.4 MG/DL (8.5-10.1) L Current Medications Medications (Trade) Dose Ordered Sig/Marla Route PRN Reason Start Time Stop Time Status Last Admin Dose Admin Acetaminophen/ Hydrocodone Bitart ([place] 5/325) 1 tab Q4H PRN ORAL Moderate Pain (Pain Scale 4-6) 06/07/17 14:15 06/14/17 14:14 06/10/17 12:28 Dextrose (Dextrose 50%) STAT PRN IV Hypoglycemia 06/07/17 14:15 07/07/17 14:14 Dextrose/Sodium Chloride 1,000 ml @ 75 mls/hr [id number] IV 06/07/17 15:11 07/07/17 15:10 06/12/17 10:34 Diphenhydramine HCl (Benadryl) 25 mg Q6H PRN ORAL Itching/Pruritis 06/07/17 14:15 07/07/17 14:14 Heparin Sodium (Porcine) (Heparin 5000 units/ml) 5,000 units EVERY 12 HOURS SUBQ 06/07/17 21:00 07/07/17 20:59 06/12/17 08:14 Hydromorphone HCl (Dilaudid) 2 mg Q6H PRN ORAL Severe Pain (Pain Scale 7-10) 06/12/17 11:00 06/19/17 10:59 06/12/17 12:45 Iron Sucrose 100 mg/Sodium Chloride 60 ml @ 240 mls/hr BEDTIME IV 06/10/17 21:00 06/14/17 21:14 06/11/17 20:11 Lactobacillus Acidophilus (Culturelle) 1 tab THREE TIMES A DAY ORAL 06/07/17 18:00 07/07/17 17:59 06/12/17 12:45 Lorazepam (Ativan) 1 mg Q6H PRN ORAL For Anxiety 06/11/17 01:00 06/18/17 00:59 06/12/17 14:59 Ondansetron HCl (Zofran) 4 mg Q6H PRN IVP Nausea & Vomiting 06/07/17 14:15 07/07/17 14:14 06/09/17 18:15 Piperacillin Sod/ Tazobactam Sod 3.375 gm/Dextrose 55 ml @ 13.75 mls/ hr EVERY 8 HOURS IVPB 06/10/17 15:00 06/15/17 14:59 06/12/17 13:56 Psyllium Hydrophilic Mucilloid (Metamucil) 1 pkt THREE TIMES A DAY ORAL 06/07/17 18:00 07/07/17 17:59 06/12/17 12:46 Hima Armstrong M.D. Jun 12, 2017 16:04
--- NOTE | 2017-06-12 17:15 | Progress Note ---
DATE: 06/12/2017 SUBJECTIVE: This is a young white male, who is currently in the bed, comfortable. Abdominal pain is better. OBJECTIVE: VITAL SIGNS: Stable. CHEST: Bilaterally clear. CARDIOVASCULAR: Regular rhythm. ABDOMEN: Open wound with colostomy bag. GENITOURINARY: Deferred. LABORATORY DATA: Blood cultures growing Enterococcus. ASSESSMENT: 1. Sepsis. 2. Abdominal wound. 3. Abdominal pain. PLAN: We will currently continue antibiotics. ID is on consult. The patient was placed on IV antibiotics. Continue soft diet. Continue rest of the wound care. Lester Bansal M.D. DR: Chante JOB#: [id number] CC:
[2017-06-12] MEDS ORDERED: Heparin 25,000u/D5W 500ml 500 ML IV SCH (18:00)
[2017-06-12] MEDS: Iron Sucrose 100 MG in NS 55 ML IV SCH (20:54)
[2017-06-13] VITALS: BP 126/62
[2017-06-13] MEDS ORDERED: HYDROmorphone 1mg/ml Carpuject IVP PRN (01:15)
[2017-06-13] MEDS: D5 1/2NS 1,000 ML IV SCH (04:47)
[2017-06-13] MEDS ORDERED: Heparin 25,000u/D5W 500ml 500 ML IV SCH ×4 (05:30→14:30)
[2017-06-13] MEDS: Piperacillin/Tazobactam 3.375 GM in D5W 55 ML IVPB SCH ×2 (05:47→13:20)
[2017-06-13] MEDS: LORazepam Inj 2mg/ml 1ml IV PRN ×2 (05:56→15:20)
[2017-06-13 05:57] LABS: EOSINOPHILS % (AUTO) 3.5 % (0.0-3.0); LYMPHOCYTES % (AUTO) 22.8 % (20.0-45.0); MEAN CORPUSCULAR HEMOGLOBIN 30.2 PG (27.0-31.0); MEAN CORPUSCULAR HGB CONC 33.2 G/DL (32.0-36.0); MEAN CORPUSCULAR VOLUME 91 FL (80-99); MEAN PLATELET VOLUME 5.9 FL (6.5-10.1); MONOCYTES % (AUTO) 7.4 % (1.0-10.0); NEUTROPHILS % (AUTO) 65.3 % (45.0-75.0); PLATELET COUNT 271 K/UL (150-450); RED BLOOD COUNT 4.78 M/UL (4.70-6.10); RED CELL DISTRIBUTION WIDTH 11.8 % (11.6-14.8); WHITE BLOOD COUNT 6.1 K/UL (4.8-10.8)
[2017-06-13 06:30] LABS: ANION GAP 7 mmol/L (5-15); CALCIUM 8.3 MG/DL (8.5-10.1); CARBON DIOXIDE 27 MMOL/L (21-32); CHLORIDE 101 MMOL/L (98-107); CREATININE 0.9 MG/DL (0.55-1.30); GLOMERULAR FILTRATION RATE > 60 mL/min (>60); POTASSIUM 3.8 MMOL/L (3.5-5.1); SODIUM 135 MMOL/L (136-145)
[2017-06-13] MEDS ORDERED: Heparin 5000 units/ml inj IV ONE ×2 (07:15→14:30)
[2017-06-13] MEDS: Metamucil Pkt ORAL SCH ×2 (09:10→13:20)
[2017-06-13] MEDS: Lactobacillus-GG tablet ORAL SCH ×2 (09:10→13:20)
--- NOTE | 2017-06-13 10:28 | General Surgery Progress Note ---
General Surgery-Progress Note Subjective Symptoms: improved Additional Comments left upper extremity phlebitis somewhat improved. no n/v/f/c. comfortable. abd pain mildly improved. wants to go home soon. repeat blood cultures negative. Objective Last 24 Hour Vital Signs Date Time Temp Pulse Resp B/P (MAP) Pulse Ox O2 Delivery O2 Flow Rate FiO2 06/13/17 00:00 97.2 74 18 126/62 97 06/12/17 12:01 Room Air 06/12/17 12:00 97.3 55 20 113/62 93 I&O Intake and Output 06/12/17 06/13/17 19:00 07:00 Intake Total 732.50 ml 675.00 ml Output Total 500 ml Balance 232.50 ml 675.00 ml Intake Oral 480 ml 260 ml IV Total 252.50 ml 415.00 ml Stool Total 500 ml # Voids 3 Wound: clean Drains: none Cardiovascular: RSR Respiratory: clear Abdomen: soft, non-tender, present bowel sounds Extremities: no tenderness, other - left upper extremity phlebitis Laboratory Tests Test 06/13/17 05:30 White Blood Count 6.1 K/UL (4.8-10.8) Red Blood Count 4.78 M/UL (4.70-6.10) Hemoglobin 14.4 G/DL (14.2-18.0) Hematocrit 43.5 % (42.0-52.0) Mean Corpuscular Volume 91 FL (80-99) Mean Corpuscular Hemoglobin 30.2 PG (27.0-31.0) Mean Corpuscular Hemoglobin Concent 33.2 G/DL (32.0-36.0) Red Cell Distribution Width 11.8 % (11.6-14.8) Platelet Count 271 K/UL (150-450) Mean Platelet Volume 5.9 FL (6.5-10.1) L Neutrophils (%) (Auto) 65.3 % (45.0-75.0) Lymphocytes (%) (Auto) 22.8 % (20.0-45.0) Monocytes (%) (Auto) 7.4 % (1.0-10.0) Eosinophils (%) (Auto) 3.5 % (0.0-3.0) H Basophils (%) (Auto) 1.0 % (0.0-2.0) Activated Partial Thromboplast Time 29 SEC (23-33) Sodium Level 135 MMOL/L (136-145) L Potassium Level 3.8 MMOL/L (3.5-5.1) Chloride Level 101 MMOL/L (98-107) Carbon Dioxide Level 27 MMOL/L (21-32) Anion Gap 7 mmol/L (5-15) Blood Urea Nitrogen 17 mg/dL (7-18) Creatinine 0.9 MG/DL (0.55-1.30) Estimat Glomerular Filtration Rate > 60 mL/min (>60) Glucose Level 112 MG/DL (74-106) H Calcium Level 8.3 MG/DL (8.5-10.1) L Plan Problems: (1) Abdominal pain (2) Diastasis recti Assessment & Plan: 26F with hx of complicated crohn's disease s/p two prior surgeries and a LLQ ostomy presented with crohn's flare. during admission c/o abdominal pain in RLQ and with bacteremia. possibly believed to be from incarcerated hernia? patient examined and CT reviewed. he has a moderate diastasis on abdominal wall but no hernia. pain likely secondary to active crohn's disease. patient currently on ABX but refuses IBD medicaiton. repeat blood cultures negative. left upper extremity phlebitis. -no acute surgical intervention necessary. -Abx as per ID -warm compress for left upper extremity phlebitis and NSAIDS -will follow. thank you for this consult. Chris Goel Jun 13, 2017 10:28
--- NOTE | 2017-06-13 10:43 | Diagnostic Imaging Report ---
APPROVED REPORT CPT Code: 16463 Present Symptoms Upper Extremity Pain: Left Upper Extremity Edema: Left Comments: Hx PICC line thrombus, 2013. LEFT UPPER EXTREMITY: Venous imaging reveals patency of the internal jugular, subclavian, axillary and brachial veins. Doppler indicates normal spontaneous flow within these venous segments. The basilic vein is patent. The cephalic vein is thrombosed at the mid-to distal upper arm level. TIAN Mcdonald was informed of abnormal results at 12:15 hrs. No evidence of acute DVT.
--- NOTE | 2017-06-13 10:43 | Diagnostic Imaging Report ---
APPROVED REPORT CPT Code: 33958 Present Symptoms Upper Extremity Pain: Comments: R/O DVT. RIGHT UPPER EXTREMITY VENOUS DUPLEX: Venous imaging reveals patency of the internal jugular, subclavian, axillary and brachial veins. The cephalic and basilic veins are also patent. Doppler indicates normal spontaneous flow within these venous segments.
--- NOTE | 2017-06-13 11:07 | GI Progress Note ---
Assessment/Plan Problems: (1) Iron deficiency anemia ICD Codes: D50.9 - Iron deficiency anemia, unspecified SNOMED: 23153793 (2) Ileostomy present ICD Codes: Z93.2 - Ileostomy status SNOMED: 842266817 (3) Abdominal pain ICD Codes: R10.9 - Unspecified abdominal pain SNOMED: 52480724 (4) Crohns disease ICD Codes: K50.90 - Crohn's disease, unspecified, without complications SNOMED: 76751969 (5) Dehydration ICD Codes: E86.0 - Dehydration SNOMED: 19275837 (6) Sepsis due to Enterococcus ICD Codes: A41.81 - Sepsis due to Enterococcus SNOMED: 150304801, 816822983 Status: stable Status Narrative Discussed with Dr. Chisholm. Assessment/Plan neg stool C.diff okay for DC per GI standpoint patient refusing steroids or any other medications for CD pain control cont Metamucil cont lactobacillus tolerating diet, low residual iv iron abx per ID fu labs outpatient colonoscopy for ileostomy takedown Subjective Subjective abdominal pain watery stool Objective Last 24 Hour Vital Signs Date Time Temp Pulse Resp B/P (MAP) Pulse Ox O2 Delivery O2 Flow Rate FiO2 06/13/17 00:00 97.2 74 18 126/62 97 06/12/17 12:01 Room Air 06/12/17 12:00 97.3 55 20 113/62 93 Intake and Output 06/12/17 06/13/17 19:00 07:00 Intake Total 732.50 ml 675.00 ml Output Total 500 ml Balance 232.50 ml 675.00 ml Intake Oral 480 ml 260 ml IV Total 252.50 ml 415.00 ml Stool Total 500 ml # Voids 3 Laboratory Tests Test 06/13/17 05:30 White Blood Count 6.1 K/UL (4.8-10.8) Red Blood Count 4.78 M/UL (4.70-6.10) Hemoglobin 14.4 G/DL (14.2-18.0) Hematocrit 43.5 % (42.0-52.0) Mean Corpuscular Volume 91 FL (80-99) Mean Corpuscular Hemoglobin 30.2 PG (27.0-31.0) Mean Corpuscular Hemoglobin Concent 33.2 G/DL (32.0-36.0) Red Cell Distribution Width 11.8 % (11.6-14.8) Platelet Count 271 K/UL (150-450) Mean Platelet Volume 5.9 FL (6.5-10.1) L Neutrophils (%) (Auto) 65.3 % (45.0-75.0) Lymphocytes (%) (Auto) 22.8 % (20.0-45.0) Monocytes (%) (Auto) 7.4 % (1.0-10.0) Eosinophils (%) (Auto) 3.5 % (0.0-3.0) H Basophils (%) (Auto) 1.0 % (0.0-2.0) Activated Partial Thromboplast Time 29 SEC (23-33) Sodium Level 135 MMOL/L (136-145) L Potassium Level 3.8 MMOL/L (3.5-5.1) Chloride Level 101 MMOL/L (98-107) Carbon Dioxide Level 27 MMOL/L (21-32) Anion Gap 7 mmol/L (5-15) Blood Urea Nitrogen 17 mg/dL (7-18) Creatinine 0.9 MG/DL (0.55-1.30) Estimat Glomerular Filtration Rate > 60 mL/min (>60) Glucose Level 112 MG/DL (74-106) H Calcium Level 8.3 MG/DL (8.5-10.1) L Height (Feet): 6 Height (Inches): 3.00 Weight (Pounds): 170 General Appearance: WD/WN, no apparent distress, alert, thin Cardiovascular: normal rate Respiratory/Chest: normal breath sounds, no respiratory distress Abdominal Exam: normal bowel sounds, non tender, soft, other - ileostomy Extremities: normal range of motion, non-tender Pia Bell N.Loretta Jun 13, 2017 11:07
[2017-06-13] MEDS ORDERED: Lidocaine 1% Plain 30 ml INJ ONE (13:30)
[2017-06-13] MEDS ORDERED: Heparin 2000 units/Ns 1000ml INJ PRN (13:30)
[2017-06-13 15:58] VITALS: BP 132/68
--- NOTE | 2017-06-13 16:35 | Infectious Diseases Prog Note ---
Assessment/Plan Problems: (1) Sepsis due to Enterococcus Assessment & Plan: source is GI tract , ? enteritis, less likely incarceration , on zosyn empiric coverage , 2D echo didn't show any vegetations , repeated blood culture to confirm clearance is negative . will treat for 2 weeks from the clearance date with oral zyvox . since he is poor candidate for IV antibiotics with ampicillin or vancomycin which will need three times daily of antibiotics delivery. (2) Crohns disease Assessment & Plan: not on meds, GI is following (3) Abdominal pain Assessment & Plan: with hernia, and non reducible bowel , rule out incarceration of his hernia , GI is following , general surgery evaluated the patient , no surgical intervention is needed (4) Ileostomy present Assessment & Plan: continue local care , follow up with general surgery for possible take down . Subjective Constitutional: Reports: no symptoms HEENT: Reports: no symptoms Respiratory: Reports: no symptoms Breasts: Reports: no symptoms Cardiovascular: Reports: no symptoms Gastrointestinal/Abdominal: Reports: no symptoms Genitourinary: Reports: no symptoms Neurologic: Reports: no symptoms Psychiatric: Reports: no symptoms Skin: Reports: no symptoms Endocrine: Reports: no symptoms Hematologic: Reports: no symptoms Musculoskeletal: Reports: no symptoms Allergies: Coded Allergies: No Known Allergies (Unverified , 06/07/17) Objective Vital Signs Last 24 Hour Vital Signs Date Time Temp Pulse Resp B/P (MAP) Pulse Ox O2 Delivery O2 Flow Rate FiO2 06/13/17 15:58 97.1 58 21 132/68 97 Room Air 06/13/17 00:00 97.2 74 18 126/62 97 Height (Feet): 6 Height (Inches): 3.00 Weight (Pounds): 170 General Appearance: WD/WN, no acute distress HEENT: normocephalic, atraumatic, anicteric, mucous membranes moist, PERRL Respiratory/Chest: chest wall non-tender, lungs clear, normal breath sounds, no respiratory distress, no accessory muscle use Cardiovascular: normal peripheral pulses, normal rate, regular rhythm, no gallop/murmur, no JVD Abdomen: normal bowel sounds, soft, non tender, no organomegaly, non distended , no mass, hypoactive bowel sounds, other - LLQ illestomy bag with greenish liquidish stool . Extremities: no cyanosis, no clubbing Skin: no rash, no lesions, no ulcers Neurologic/Psychiatric: alert, oriented x 3, responsive Microbiology Date/Time Source Procedure Growth Status 06/11/17 12:55 Blood Blood Culture - Preliminary NO GROWTH AFTER 24 HOURS Resulted 06/11/17 12:40 Blood Blood Culture - Preliminary NO GROWTH AFTER 24 HOURS Resulted Laboratory Tests Test 06/13/17 05:30 06/13/17 12:04 White Blood Count 6.1 K/UL (4.8-10.8) Red Blood Count 4.78 M/UL (4.70-6.10) Hemoglobin 14.4 G/DL (14.2-18.0) Hematocrit 43.5 % (42.0-52.0) Mean Corpuscular Volume 91 FL (80-99) Mean Corpuscular Hemoglobin 30.2 PG (27.0-31.0) Mean Corpuscular Hemoglobin Concent 33.2 G/DL (32.0-36.0) Red Cell Distribution Width 11.8 % (11.6-14.8) Platelet Count 271 K/UL (150-450) Mean Platelet Volume 5.9 FL (6.5-10.1) L Neutrophils (%) (Auto) 65.3 % (45.0-75.0) Lymphocytes (%) (Auto) 22.8 % (20.0-45.0) Monocytes (%) (Auto) 7.4 % (1.0-10.0) Eosinophils (%) (Auto) 3.5 % (0.0-3.0) H Basophils (%) (Auto) 1.0 % (0.0-2.0) Activated Partial Thromboplast Time 29 SEC (23-33) 34 SEC (23-33) H Sodium Level 135 MMOL/L (136-145) L Potassium Level 3.8 MMOL/L (3.5-5.1) Chloride Level 101 MMOL/L (98-107) Carbon Dioxide Level 27 MMOL/L (21-32) Anion Gap 7 mmol/L (5-15) Blood Urea Nitrogen 17 mg/dL (7-18) Creatinine 0.9 MG/DL (0.55-1.30) Estimat Glomerular Filtration Rate > 60 mL/min (>60) Glucose Level 112 MG/DL (74-106) H Calcium Level 8.3 MG/DL (8.5-10.1) L Current Medications Medications (Trade) Dose Ordered Sig/Marla Route PRN Reason Start Time Stop Time Status Last Admin Dose Admin Acetaminophen/ Hydrocodone Bitart ([place] 5/325) 1 tab Q4H PRN ORAL Moderate Pain (Pain Scale 4-6) 06/07/17 14:15 06/14/17 14:14 06/10/17 12:28 Chlorhexidine Gluconate (Janneth-Hex 2%) 1 applic DAILY@2000 TOPIC 06/13/17 20:00 07/13/17 19:59 Dextrose (Dextrose 50%) STAT PRN IV Hypoglycemia 06/07/17 14:15 07/07/17 14:14 Dextrose/Sodium Chloride 1,000 ml @ 75 mls/hr [id number] IV 06/07/17 15:11 07/07/17 15:10 06/13/17 04:47 Diphenhydramine HCl (Benadryl) 25 mg Q6H PRN ORAL Itching/Pruritis 06/07/17 14:15 07/07/17 14:14 Heparin Sodium/ Sodium Chloride (Heparin 2000 units/Ns 1000ml premix) 2,000 unit PRN PRN INJ LINE PLACEMENT 06/13/17 13:30 Hydromorphone HCl (Dilaudid) 1 mg Q4H PRN IVP Severe Pain (Pain Scale 7-10) 06/13/17 04:45 06/20/17 04:44 06/13/17 13:22 Iron Sucrose 100 mg/Sodium Chloride 60 ml @ 240 mls/hr BEDTIME IV 06/10/17 21:00 06/14/17 21:14 06/12/17 20:54 Lactobacillus Acidophilus (Culturelle) 1 tab THREE TIMES A DAY ORAL 06/07/17 18:00 07/07/17 17:59 06/13/17 13:20 Lorazepam (Ativan 2mg/ml 1ml) 1 mg Q6H PRN IV For Anxiety 06/13/17 01:15 06/20/17 01:14 06/13/17 15:20 Ondansetron HCl (Zofran) 4 mg Q6H PRN IVP Nausea & Vomiting 06/07/17 14:15 07/07/17 14:14 06/09/17 18:15 Piperacillin Sod/ Tazobactam Sod 3.375 gm/Dextrose 55 ml @ 13.75 mls/ hr EVERY 8 HOURS IVPB 06/10/17 15:00 06/15/17 14:59 06/13/17 13:20 Psyllium Hydrophilic Mucilloid (Metamucil) 1 pkt THREE TIMES A DAY ORAL 06/07/17 18:00 07/07/17 17:59 06/13/17 13:20 Hima Armstrong M.D. Jun 13, 2017 16:35
[2017-06-13] MEDS ORDERED: ZYVOX600 MG/300 PO (16:43)
[2017-06-13] MEDS ORDERED: D5W 275ml ONE (17:55)
[2017-06-13] MEDS ORDERED: NS 275ml ONE (17:55)
[2017-06-13] MEDS ORDERED: D5 1/2NS 1000ml IV ONE (17:55)
[2017-06-13] MEDS ORDERED: Dyna-Hex 2% Top Sol 2oz TOPIC SCH (20:00)
--- NOTE | 2017-06-14 14:33 | Discharge Summary ---
Discharge Summary Hospital Course Date of Admission Jun 07, 2017 at 11:18 Date of Discharge Jun 13, 2017 at 17:56 Admitting Diagnosis abd pain/dehydration HPI Juan Hubbard is a 26 year old male who was admitted on Jun 07, 2017 at 11:18 for Abdominal Pain, Dehydration Hospital Course The patient is a 26-year-old male with a past medical history significant for Crohn's disease, history of bowel perforation with resection in 2012 with ileostomy who presented to the emergency room with right quadrant abdominal pain, lower. According to him, he has been having a hernia at that site, but this morning he has abdominal pain at the site, which worsened prompting his visit to the emergency room. He also stated that he noticed some bulge on his left side close to the ileostomy, which could be as a result of hernia and wants his surgeon to look at it. He denied any chest pain, has some nausea with the pain, but denied any vomiting. Denied fever. No chills. No lightheadedness. Pain is sharp, nonradiating, and intermittent. No alleviating or exacerbating factors. He also noted some watery stools in the ileostomy. He has just relocated here from [place] and he is not seeing any central processing tech currently. Ileostomy noted with watery brown stool, no noted melena or hematochezia. CT AP reviewed with enteritis, no SOB. He was refusing steroids any meds for Crohns. He was given pain management, metamucil and lactobacillus. He was tolerating low residue diet. He was recommended out patient colonoscopy for ileostomy takedown. C diff was negative. The patient had blood culture on admission, one set grew Enterococcus faecalis, pansensitive. He was started on Zosyn. TTEwas done EF 55-60%, negative for vegetations. Repeated blood culture to confirm clearance was negative . Will need to treat for 2 weeks from the clearance date with oral zyvox . Surgical evaluation was done to assess hernia. CT scan reviewed, no hernia identified. CT correlated with physical exam and no hernia noted. Diastasis of recti muscle noted secondary to prior surgery. Focal superficial RLQ tenderness around rectus muscle is very close to the prior ileostomy site. After discussion patient state that he has had similar symptoms since his RLQ ileostomy was taken down. Likely has scar tissue that i s causing discomfort as on exam and CT there is no organic etiology for symptoms. Possible superficial nerve injury with closure? There was no no hernia nor incarcerated bowel noted. Assessment/Plan Problem List: (1) Sepsis due to Enterococcus (2) Crohns disease with acute flare-up (3) Ileostomy present (4) Dehydration (5) Hypokalemia (6) Renal stone (7) Diastasis recti (8) Iron deficiency ---I have been assigned to complete a DC summary on this account.I was not involved with the patient management.--LISA Thomas Discharge Discharge Disposition Patient was discharged to Home with Home Health(06) Discharge Diagnoses: Nhi Tobias NP Jun 14, 2017 14:33
== END 2017-06-13 17:56 | disposition home health service (06) | DRG 385 ==
LOC: EMR 07:37 → 4E 11:18 → EDBEDREQ 11:48
DX: K50.90 Crohn's disease, unspecified, without complications (principal); A41.81 Sepsis due to Enterococcus; E87.6 Hypokalemia; E86.0 Dehydration; N20.0 Calculus of kidney; D50.9 Iron deficiency anemia, unspecified; K42.9 Umbilical hernia without obstruction or gangrene; Z93.2 Ileostomy status
CPT/HCPCS: 36415; 74177; 80048; 80053; 81003; 82150; 82607; 82746; 82962; 83540; 83550; 83605; 83690; 84443; 85025; 85651; 85730; 86140; 87040; 87181; 87324; 93306; 93970; 93971; 99285; J2405; J8499

== ENCOUNTER 2017-06-25 17:25 | Emergency (ER) | payer MEDICARE, MEDICAID ==
[~2017-06-25] VITALS: Ht 193 cm; Wt 74.8 kg
[~2017-06-25 17:25] MED LIST: MULTIVITAMINS1 EAC2 ORAL; ZYVOX600 MG/300 PO
[2017-06-25 19:37] VITALS: BP 144/86
--- NOTE | 2017-06-25 21:32 | Emergency Room Report ---
History of Present Illness General Chief Complaint: General Complaint Source: Patient Present Illness HPI The patient is a 26-year-old male with a history of anxiety disorder and Crohn disease presenting for change of ostomy bag. Ostomy was done approximately 5 years prior while the patient was living on the [facility]. He states that he will never go back and needs to find a physician here. He denies any pain to the area or skin changes. He denies any other symptoms including abdominal pain , nausea, vomiting Allergies: Uncoded Allergies: OPIOIDS (Allergy, Unknown, 06/25/17) Patient History Past Medical History: see triage record Pertinent Family History: none Reviewed Nursing Documentation: PMH: Agreed, PSxH: Agreed Nursing Documentation-PMH Past Medical History: No History, Except For Hx Cardiac Problems: No Hx Hypertension: No Hx Pacemaker: No Hx Asthma: No Hx COPD: No Hx Diabetes: No Hx Cancer: No Hx Gastrointestinal Problems: Yes - Crohn's Disease History Of Psychiatric Problem: Yes - PTSD Hx Neurological Problems: No Hx Cerebrovascular Accident: No Hx Transient Ischemic Attacks: No Hx Dementia: No Hx Alzheimer's Disease: No Hx Parkinson's Disease: No Hx Meningitis: No Hx Encephalitis: No Hx Seizures: No Hx Epilepsy: No Hx Multiple Sclerosis: No Hx Cerebral Palsy: No Hx Amyotrophic Lat Sclerosis: No Hx Guillian-[place] Syndrome: No Hx Paralysis: No Hx Peripheral Neuropathy: No Hx Spinal Cord Injury: No Hx Head Trauma: No Hx Traumatic Brain Injury: No Hx Memory Loss: No Hx Concentration Difficulty: Yes Hx Speech Problem: No Hx Tremors: No Hx Vertigo: No Hx Dizziness: No Hx Headaches: No Hx Aphasia: No Hx Dysphasia: No Hx Numbness: No Hx Weakness: No Hx Neurologic Surgery: No Hx Brain Shunt: No Review of Systems All Other Systems: negative except mentioned in HPI Physical Exam Vital Signs Date Time Temp Pulse Resp B/P (MAP) Pulse Ox O2 Delivery O2 Flow Rate FiO2 06/25/17 17:43 97.5 70 14 144/86 98 Room Air Sp02 EP Interpretation: reviewed, normal General Appearance: no apparent distress, alert, GCS 15, non-toxic Head: normocephalic, atraumatic Eyes: bilateral eye normal inspection, bilateral eye PERRL ENT: hearing grossly normal, normal pharynx, no angioedema, normal voice Gastrointestinal: normal bowel sounds, non tender, soft, non-distended, no guarding, no rebound, other - Ostomy site L abd. In place. Bag appears full. No skin changes. No erythema. Genitourinary: normal inspection, no CVA tenderness Musculoskeletal: back normal, gait/station normal, normal range of motion, non- tender Neurologic: alert, oriented x3, responsive, motor strength/tone normal, sensory intact, speech normal Psychiatric: judgement/insight normal, memory normal, mood/affect normal, no suicidal/homicidal ideation Skin: normal color, no rash, warm/dry, well hydrated Medical Decision Making PA Attestation Dr. Hernandez is my supervising physician. Patient management was discussed with my supervising physician Diagnostic Impression: Primary Impression: Colostomy care ER Course The patient is a 26-year-old male with a history of anxiety disorder and Crohn disease presenting for change of ostomy bag. Differential diagnoses considered include but not limited to cellulitis, ostomy malfunction, gastritis, among others PE: Afebrile. NAD Ostomy site L abd. In place. Bag appears full. No skin changes. No erythema. Ostomy bag replaced without difficulty. The patient is discharged home and states that he will find a new primary doctor as soon as possible. ER precautions are given Last Vital Signs Date Time Temp Pulse Resp B/P (MAP) Pulse Ox O2 Delivery O2 Flow Rate FiO2 06/25/17 19:37 70 14 144/86 98 Room Air 06/25/17 19:37 97.5 Status: improved Disposition: HOME, SELF-CARE Condition: Improved Referrals: NOT CHOSEN IPA/MD,REFERRING (PCP) Patient Instructions: Colostomy Home Guide Additional Instructions: I discussed my findings with the patient. All questions and concerns have been answered. Treatment and medication compliance have been addressed. I advised the patient that they need to follow up with primary doctor within 3-5 days. Return to ED if symptoms worsen, new symptoms arise, or if needed for any reason. Patient verbalized understanding of discharge instructions. [place] MENJIVAR Jun 25, 2017 21:32
== END 2017-06-25 19:59 | disposition home or self-care (01) ==
LOC: EMR 17:48
DX: K94.09 Other complications of colostomy (principal); Z43.3 Encounter for attention to colostomy; K50.90 Crohn's disease, unspecified, without complications; F43.10 Post-traumatic stress disorder, unspecified; Z88.6 Allergy status to analgesic agent; F41.9 Anxiety disorder, unspecified
CPT/HCPCS: 99283

== ENCOUNTER 2017-07-13 22:57 | Emergency (ER) | payer MEDICARE, MEDICAID ==
[~2017-07-13] VITALS: Ht 190.5 cm; Wt 74.8 kg
[2017-07-13 22:58] VITALS: BP 142/72
[2017-07-13] MEDS ORDERED: Tylenol #3 tab (300mg/30mg) ORAL ONE (23:15)
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
[2017-07-13] MEDS ORDERED: IBUPROFEN600 MG ORAL (23:22)
[2017-07-13 23:52] VITALS: BP 142/72
--- NOTE | 2017-07-14 10:03 | Diagnostic Imaging Report ---
Indication: Pain Technique: XRAY Chest 1v Comparison: None Findings: Heart size and mediastinal contours are within normal limits. There is no focal consolidation, pneumothorax or pleural effusion. Osseous structures demonstrate no acute abnormality. Impression: No radiographic evidence of acute cardiopulmonary disease.
== END 2017-07-14 00:46 | disposition home or self-care (01) ==
LOC: EDBD 22:57 → EMR 23:52
DX: R07.9 Chest pain, unspecified (principal); Z88.6 Allergy status to analgesic agent
CPT/HCPCS: 71045; 99283